=== PATIENT | female | born 1980 | race Caucasian/White ===

== ENCOUNTER 2020-05-21 15:39 | Outpatient (REF) | payer OTHER, SELFPAY ==
--- NOTE | 2020-05-21 15:46 | MM_ITS ---
EXAMINATION: MM SCREENING DIGITAL BREAST TOMOSYNTHESIS, BILATERAL CLINICAL INFORMATION: Screening. Asymptomatic. The lifetime risk of breast cancer based on the Tyrer-Cuzick Model is 11%. COMPARISON: Mammography: 03/22/2019, 09/17/2018 (diagnostic and baseline); MRI breasts 01/10/2019. TECHNIQUE: Digital breast tomosynthesis is performed in both the craniocaudal and mediolateral oblique views along with computer-aided detection (CAD). Synthesized 2D images are generated from the tomosynthesis. Additional left MLO view is provided. FINDINGS: There are scattered areas of fibroglandular density (ACR BI-RADS breast composition Category b). Parenchymal pattern is similar to prior studies. There is no interval mass or architectural abnormality. No abnormal calcifications. The axilla and skin contours are unremarkable. MM/MM tomosynthesis screening BI IMPRESSION: No mammographic evidence of malignancy. ASSESSMENT: BI-RADS 1: Negative RECOMMENDATION: Routine annual mammography screening. This patient's information was entered into a reminder system with a target due date for their next mammogram.
== END 2020-05-21 15:40 | disposition home or self-care (01) ==
LOC: HO.MAMMO 15:39
PROVIDERS: PCP Internal Medicine; Visit Provider Internal Medicine
DX: Z12.31 Encounter for screening mammogram for malignant neoplasm of breast (principal)
CPT/HCPCS: 77063; 77067

== ENCOUNTER 2021-05-29 13:51 | Outpatient (REF) | payer OTHER, SELFPAY ==
--- NOTE | ~2021-05-29 | MM_ITS ---
EXAMINATION: MM SCREENING DIGITAL BREAST TOMOSYNTHESIS, BILATERAL CLINICAL INFORMATION: Screening. Asymptomatic. The lifetime risk of breast cancer based on the Tyrer-Cuzick Model is 10.8%. COMPARISON: Mammography: May 21, 2020 and studies dating back to September 17, 2018 TECHNIQUE: Digital breast tomosynthesis is performed in both the craniocaudal and mediolateral oblique views along with computer-aided detection (CAD). Synthesized 2D images are generated from the tomosynthesis. FINDINGS: There are scattered areas of fibroglandular density (ACR BI-RADS breast composition Category b). There are no significant masses, abnormal calcifications, or other abnormalities. MM/MM tomosynthesis screening BI IMPRESSION: There are no significant changes from prior study. ASSESSMENT: BI-RADS 1: Negative RECOMMENDATION: Routine annual mammography screening. This patient's information was entered into a reminder system with a target due date for their next mammogram.
== END 2021-05-29 13:52 | disposition home or self-care (01) ==
LOC: HO.MAMMO 13:51
PROVIDERS: PCP Internal Medicine; Visit Provider Internal Medicine
DX: Z12.31 Encounter for screening mammogram for malignant neoplasm of breast (principal)
CPT/HCPCS: 77063; 77067

== ENCOUNTER 2022-05-30 14:25 | Outpatient (REF) | payer OTHER, SELFPAY ==
--- NOTE | ~2022-05-30 | MM_ITS ---
EXAMINATION: MM SCREENING DIGITAL BREAST TOMOSYNTHESIS, BILATERAL CLINICAL INFORMATION: Screening. Asymptomatic. History reduction mammoplasty over 15 years ago. The lifetime risk of breast cancer based on the Tyrer-Cuzick Model is 11%. COMPARISON: Mammography: 05/29/2021, 05/21/2020, 03/22/2019, 09/17/2018 (baseline) TECHNIQUE: Digital breast tomosynthesis is performed in both the craniocaudal and mediolateral oblique views along with computer-aided detection (CAD). Synthesized 2D images are generated from the tomosynthesis. FINDINGS: There are scattered areas of fibroglandular density (ACR BI-RADS breast composition Category b). There are no significant masses, abnormal calcifications, or other abnormalities. Parenchymal pattern is similar to prior studies. No developing density or architectural abnormality. The axilla and skin contours are unremarkable. No significant changes. MM/MM tomosynthesis screening BI IMPRESSION: No mammographic evidence of malignancy. ASSESSMENT: BI-RADS 1: Negative RECOMMENDATION: Routine annual mammography screening. This patient's information was entered into a reminder system with a target due date for their next mammogram.
== END 2022-05-30 14:26 | disposition home or self-care (01) ==
LOC: HO.MAMMO 14:25
PROVIDERS: PCP Internal Medicine; Visit Provider Internal Medicine
DX: Z12.31 Encounter for screening mammogram for malignant neoplasm of breast (principal)
CPT/HCPCS: 77063; 77067

== ENCOUNTER 2023-03-09 13:53 | Outpatient (AMB) | payer OTHER, SELFPAY ==
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
[2023-03-09 14:03] VITALS: BP 150/100; BMI 31.8
== END 2023-03-09 14:59 | disposition home or self-care (01) ==
PROVIDERS: Visit Provider Advanced Practice Midwife
DX: Z01.419 Encounter for gynecological examination (general) (routine) without abnormal findings (principal); Z12.4 Encounter for screening for malignant neoplasm of cervix; R03.0 Elevated blood-pressure reading, without diagnosis of hypertension
CPT/HCPCS: 99386

== ENCOUNTER 2023-03-09 13:53 | Outpatient (REF) | payer OTHER, SELFPAY ==
[2023-03-10 09:54] LABS: CT PCR NOT DETECTED (Not Detect.); NG PCR NOT DETECTED (Not Detect.)
[2023-03-10 10:22] LABS: BV Int Neg Control Negative (Negative); BV Int Pos Control Positive (Positive)
[2023-03-12 04:54] LABS: HPV mRNA E6/E7 rflx Not Detected (Not Detected)
== END 2023-03-09 13:54 | disposition home or self-care (01) ==
LOC: HO.LNP 13:53
PROVIDERS: Visit Provider Advanced Practice Midwife
DX: Z01.419 Encounter for gynecological examination (general) (routine) without abnormal findings (principal); Z11.51 Encounter for screening for human papillomavirus (HPV); R03.0 Elevated blood-pressure reading, without diagnosis of hypertension; Z20.2 Contact with and (suspected) exposure to infections with a predominantly sexual mode of transmission
CPT/HCPCS: 0353U; 87480; 87510; 87624; 87660; 88142

== ENCOUNTER 2023-07-27 13:34 | Outpatient (AMB) | payer OTHER, SELFPAY ==
[2023-07-27 13:37] VITALS: BP 114/80; PULSE 107; O2SAT 98; BMI 31.6
--- NOTE | 2023-07-27 13:37 | MHC.PC.OV ---
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 Accompanied by: Self / Same As Patient Allergies Penicillins Allergy (Mild, Verified 07/27/23 14:46) HIVES vancomycin [Vancomycin] Allergy (Mild, Verified 07/27/23 14:46) ITCHING, severe itching penicillin G procaine Allergy (Unknown, Verified 07/27/23 14:46) itching, redness Shellfish Allergy (Mild, Uncoded 07/27/23 14:46) Anaphylaxis shellfish Allergy (Unknown, Uncoded 07/27/23 14:46) Anaphylaxis Medication List - Last Reconciled 08/03/23 by Ankur Fontaine MD coenzyme Q10 100 mg PO DAILY epinephrine 0.3 mg IM Q4H PRN L.acid,gas,bree,rham-B.ani-cran 5 billion cell- 250 mg (up4 Probiotics Women's) 1 cap PO DAILY multivitamin with minerals (Hair,Skin and Nails tablet) 1 tab PO DAILY omega 0-rma-pen-fish oil 300-1,000 mg (Fish Oil) 1 cap PO TID turmeric 400 mg PO DAILY Tobacco use date assessed: 07/27/23 Dental Screening Dental Screen Date: 07/27/23 Did you have a dental visit in the last 12 months?: Yes Did you have a dental problem in the last 6 months where you did not have access to dental care?: No Was dental information given to patient?: Patient has dentist HPI New patient-Fibromyalgia, possible hypertension HPI Details Patient comes in today to establish care - is a new patient to the practice States that she has a history of fibromyalgia and she continues to experience increased fatigue and diffuse pain overall, which she states have been going on for a while now States that she has learned how to manage her fibromyalgia symptoms over time but there still are days when her symptoms bother her a lot She also relates (+) Hx of Chiari malformation and likely migraine headaches and relates (+) frequent headaches Relates (+) photophobia and nausea associated with her headaches - would like to get a referral to go to [facility] for further evaluation and management of her chronic headaches She denies any dizziness Denies any chest pains, no SOB but reports that her heart sometimes would feel like it is racing; denies experiencing any skipped beats No vomiting, no abdominal pain and no change in bowel habits noted [facility] Medical History (Updated 08/03/23 @ 00:42 by Ankur Fontaine MD) Obesity (BMI 30-39.9) Chiari I malformation Migraine Palpitations Surgical History Hx of bilateral breast reduction surgery Hx of tubal ligation History of endometrial ablation Family History Other Congestive heart failure Diabetes Graves disease Hypertension Stomach cancer Social History Housing: House Patient Tobacco Use Status: Never used Tobacco Tobacco use type: Cigarette e-Cigarette/Vaping Use: Never Used service: No Current occupational status: employed Cognitive needs: No Hearing needs: No Vision needs: No Female Reproductive History Menstrual Age of Menarche: 13 Questionnaire PHQ-9 Over the last 2 weeks, how often have you been bothered by any of the following problems? 1. Little interest or pleasure in doing things: not at all 2. Feeling down, depressed, or hopeless: not at all 3. Trouble falling or staying asleep, or sleeping too much: not at all 4. Feeling tired or having little energy: not at all 5. Poor appetite or overeating: not at all 6. Feeling bad about yourself - or that you are a failure or have let yourself or your family down: not at all 7. Trouble concentrating on things, such as reading the newspaper or watching television: not at all 8. Moving or speaking so slowly that other people could have noticed. Or the opposite - being so fidgety or restless that you have been moving around a lot more than usual: not at all 9. Thoughts that you would be better off or of hurting yourself in some way: not at all Total score: 0 Depression Screening Interpretation: Negative Depression Screening Done: Yes 49059 - PHQ-9 Billing: Yes Source: Developed by Drs. Maico L. Bridgette, Guanako Harrell and colleagues, with an educational chelle from [employer] ([employer] Thrive Questionnaire Date Thrive assessed: 07/27/23 I am a: Patient What is your living situation today?: I have a steady place to live Within the past 12 months, did the food you bought not last and you didn't have the money to get more?: Never true Within the past 12 months, did you worry whether your food would run out before you got money to buy more?: Never true Do you have trouble paying for medicines?: No Do you have trouble getting transportation to medical appointments?: No Do you have trouble paying your heating and electricity bill?: No Do you have trouble taking care of your child, family member or friend?: No Do you have trouble with day-to-day activities such as bathing, preparing meals, shopping, managing finances, etc.?: No Are you currently unemployed and looking for a job?: No Are you interested in more education?: No Please select the resources that you would like help with: None Currently or been in a relationship where the following occur: no concerns reported THRIVE Score: 0 AUDIT C Alcohol Use Questionnaire (AUDIT-C) 1. How often do you have a drink containing alcohol?: Monthly or less 3. How often do you have six or more drinks on one occasion?: Never Total Score: 1 Score Reviewed/Action Taken: Yes MAYRA-7 AMB Questionnaire MAYRA-7 Date MAYRA - 7 assessed: 07/27/23 Feeling nervous, anxious, or on edge: 0 = Not at all Not being able to stop or control worryin = Not at all Worrying too much about different things: 0 = Not at all Trouble relaxin = Not at all Being so restless that it is hard to sit still: 0 = Not at all Becoming easily annoyed or irritable: 0 = Not at all Feeling afraid as if something awful might happen: 0 = Not at all Total MAYRA-7 score (0-4 normal; 5-9 mild; 10-14 moderate; 15-21 severe): 0 Source: Developed by Drs. Maico Angeles, Guanako Harrell and colleagues, with an educational chelle from [employer] ([employer]). Review of Systems Const Reports body aches (diffuse), Denies chills, Reports fatigue, Denies fever(s) and Reports headache(s) (recurrent) Eyes Denies blurry vision ENT Denies dysphagia, Denies dizziness, Denies otalgia, Reports headache(s) (recurrent), Denies neck pain, Denies odynophagia and Denies sore throat Card Denies chest pain, Denies irregular heart rhythm (but reports experiencing palpitations at times), Denies palpitations and Denies dyspnea Resp Denies cough and Denies dyspnea GI Denies abdominal pain, Denies constipation, Denies dysphagia, Denies heartburn, Denies diarrhea, Denies nausea, Denies odynophagia and Denies vomiting Denies difficulty voiding, Denies nocturia, Denies dysuria and Denies urinary urgency Musc Denies back pain, Reports myalgias (diffuse), Reports arthralgias (involving multiple joints, including her wrists and elbows) and Denies neck pain Skin/Breast Denies rash Neuro Denies dizziness and Reports headache(s) (recurrent) Endo Reports fatigue and Denies palpitations Physical exam (Primary Care) Vital Signs: Last Vital Signs Pulse 107 H 07/27/23 13:37 BP 114/80 07/27/23 13:37 Pulse Ox 98 07/27/23 13:37 Oxygen Delivery Method Room Air 07/27/23 13:37 BMI result Body Mass Index 31.6 Tobacco/Smoking Status: Tobacco use Status Tobacco use date assessed 07/27/23 07/27/23 13:38 Patient Tobacco Use Status Never used Tobacco 07/27/23 13:38 Tobacco use type Cigarette 07/27/23 13:38 e-Cigarette/Vaping Use Never Used 07/27/23 13:38 PHQ-9: PHQ-9 Score PHQ-9: Total score 0 07/27/23 14:59 Depression Screening Interpretation: Negative Thrive Assessment: Date of Thrive Assessment Date Thrive assessed 07/27/23 07/27/23 13:47 Currently or been in a relationship where the following occur: no concerns reported Const General: no acute distress and alert Orientation/consciousness: patient oriented x3 HENMT Ears: TM's normal bilaterally and EAC's normal Throat: Yes posterior oropharynx normal and Yes tonsils normal (no TP congestion) Neck Neck: Yes no lymphadenopathy and Yes supple Resp Auscultation: clear to auscultation bilaterally, no rales and no wheezes Cardio Rate: regular rate Rhythm: abnormal rhythm with ectopic beats Heart sounds: no murmurs GI Palpation (GI): Soft to palpation and nontender Auscultation: normal bowel sounds General: Yes no CVA tenderness Back/Spine/Pelvis Back: no CVA tenderness Thoracic/Lumbar Spine: No lumbar spinal tenderness Skin Rashes: no rashes Neuro General: patient oriented x3 Cognition (Neuro): normal cognition Extrem Other: No significant joint tenderness elicited on exam despite patient's complaint of multiple joint pains General: Yes no clubbing, cyanosis or edema Assessment and Plan Assessment & Plan (1) Arthralgia: Code(s): M25.50 - Pain in unspecified joint Qualifiers: Joint pain location: unspecified Qualified Code(s): M25.50 - Pain in unspecified joint Plan: Will send patient for some labs for further evaluation and management of her diffuse/multiple joint pains (2) Palpitations: Code(s): R00.2 - Palpitations Plan: She sounded like she has some ectopic beats on exam today EKG done at [facility] year came out normal Will send her for repeat EKG ANGEL for further evaluation (3) Chronic headaches: Code(s): R51.9 - Headache, unspecified; G89.29 - Other chronic pain Qualifiers: Headache type: unspecified Intractability: not intractable Qualified Code(s): R51.9 - Headache, unspecified; G89.29 - Other chronic pain Plan: Advised that her recurrent headaches are likely due to her Chiari malformation but patient also relates (+) Hx of migraine headaches Per request, will refer her to [facility] for further evaluation and management (4) Chiari I malformation: Code(s): G93.5 - Compression of brain Plan: Will refer her to neurology for further evaluation and management (5) Obesity (BMI 30-39.9): Code(s): E66.9 - Obesity, unspecified Plan: Reinforced diet/exercise as tolerated/lose weight Plan Follow up in 3 months Orders: Orders Comprehensive [place]. Panel Fast 07/27/23 E78.00 - Pure hypercholesterolemia, unspecified UA CC w/rflx Micro + Cult 07/27/23 R30.0 - Dysuria Vitamin D 25-OH Total 07/27/23 E55.9 - Vitamin D deficiency, unspecified C Reactive Protein 07/27/23 M25.50 - Pain in unspecified joint SHELLY Reflex Titer and Pattern 07/27/23 M25.50 - Pain in unspecified joint Complete Blood Count Auto Diff 07/27/23 D64.9 - Anemia, unspecified Lipid Panel 07/27/23 E78.00 - Pure hypercholesterolemia, unspecified TSH reflex Free T4 07/27/23 R00.2 - Palpitations Erythrocyte Sedimentation Rate 07/27/23 M25.50 - Pain in unspecified joint Rheumatoid Factor 07/27/23 M25.50 - Pain in unspecified joint Lyme IgG/IgM w/reflex to WB 07/27/23 M25.50 - Pain in unspecified joint Hepatitis C Antibody 07/27/23 M25.50 - Pain in unspecified joint ECG 12 lead EKG 07/27/23 R00.2 - Palpitations Referrals Neurology Referral G43.909 - Migraine, unspecified, not intractable, without status migrainosus, G93.5 - Compression of brain Coding Level of Care Code New Pt Level 4 (72133) Diagnoses Arthralgia, unspecified joint M25.50 Joint pain location: unspecified Palpitations R00.2 Chronic nonintractable headache, unspecified headache type R51.9; G89.29 Headache type: unspecified Intractability: not intractable Chiari I malformation G93.5 Obesity (BMI 30-39.9) E66.9
== END 2023-07-27 15:10 | disposition home or self-care (01) ==
PROVIDERS: PCP Internal Medicine; Visit Provider Internal Medicine
DX: M25.50 Pain in unspecified joint (principal); G93.5 Compression of brain; E66.9 Obesity, unspecified; Z68.31 Body mass index [BMI] 31.0-31.9, adult; R00.2 Palpitations; R51.9 Headache, unspecified; G89.29 Other chronic pain
CPT/HCPCS: 99204

== ENCOUNTER 2023-08-15 07:43 | Outpatient (REF) | payer OTHER, SELFPAY ==
--- NOTE | ~2023-08-15 | MM_ITS ---
EXAMINATION: MM SCREENING DIGITAL BREAST TOMOSYNTHESIS, BILATERAL CLINICAL INFORMATION: Screening. Asymptomatic. The patient is status post bilateral breast reduction. COMPARISON: Mammography: This study is compared with prior exams dating back to TECHNIQUE: Digital breast tomosynthesis is performed in both the craniocaudal and mediolateral oblique views along with computer-aided detection (CAD). Synthesized 2D images are generated from the tomosynthesis. FINDINGS: There are scattered areas of fibroglandular density (ACR BI-RADS breast composition Category b). There are no significant masses, abnormal calcifications, or other abnormalities. MM/MM tomosynthesis screening BI IMPRESSION: No mammographic evidence of malignancy. ASSESSMENT: BI-RADS BI-RADS 1 - Negative RECOMMENDATION: Routine annual mammography screening. 1 year F/U This examination should not preclude the clinical evaluation of a suspicious palpable abnormality. This patient's information was entered into a reminder system with a target due date for their next mammogram.
== END 2023-08-15 07:44 | disposition home or self-care (01) ==
LOC: HO.MAMMO 07:43
PROVIDERS: PCP Internal Medicine; Visit Provider Internal Medicine
DX: Z12.31 Encounter for screening mammogram for malignant neoplasm of breast (principal)
CPT/HCPCS: 77063; 77067

== ENCOUNTER → 2023-08-15 08:00 | Outpatient (BNV) | payer OTHER, SELFPAY | PROVIDERS: PCP Internal Medicine; Visit Provider Radiology Diagnostic Radiology | DX: Z12.31 Encounter for screening mammogram for malignant neoplasm of breast (principal) | CPT/HCPCS: 77063; 77067 ==

== ENCOUNTER 2023-10-26 15:02 | Outpatient (AMB) | payer OTHER, SELFPAY ==
--- NOTE | 2023-10-26 15:06 | A.OFFPC_ITS ---
Vital Signs 10/26/23 15:08 Height 5 ft 2 in Weight 166 lb BMI 30.4 BP 120/70 Blood Pressure Location Lt brachial Position Sitting Pulse 61 Pulse Source Pulse Oximeter Pulse Oximetry (%) 100 Oxygen Delivery Method Room Air Intake Visit Reasons: Chiari Malformation, migraine Intake Note: Patient is here to follow up on Chiari Malformation, Migraine. 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[employer] Operator Required: No Rn Disease Management: Not Required per policy Accompanied by: Self / Same As Patient Allergies Penicillins Allergy (Mild, Verified 10/26/23 15:37) HIVES vancomycin [Vancomycin] Allergy (Mild, Verified 10/26/23 15:37) ITCHING, severe itching penicillin G procaine Allergy (Unknown, Verified 10/26/23 15:37) itching, redness Shellfish Allergy (Mild, Uncoded 10/26/23 15:37) Anaphylaxis shellfish Allergy (Unknown, Uncoded 10/26/23 15:37) Anaphylaxis Medication List - Last Reconciled 10/26/23 by Ankur Fontaine MD cholecalciferol (vitamin D3) 25 mcg PO DAILY coenzyme Q10 100 mg PO DAILY epinephrine 0.3 mg IM Q4H PRN L.acid,gas,bree,rham-B.ani-cran 5 billion cell- 250 mg (up4 Probiotics Women's) 1 cap PO DAILY multivitamin with minerals (Hair,Skin and Nails tablet) 1 tab PO DAILY omega 8-fud-zvr-fish oil 300-1,000 mg (Fish Oil) 1 cap PO TID topiramate XR 50 mg orally; Patient takes 1 tab in the AM and 2 tabs in the PM. turmeric 400 mg PO DAILY Tobacco use date assessed: 10/26/23 Dental Screening Dental Screen Date: 07/27/23 HPI Chiari Malformation, migraine HPI Details Patient comes in today for her follow up visit States that she is still experiencing recurrent headaches at present despite her Topiramate Rx - is currently on 50 mg in AM and 100 mg in PM She has been referred to neurology previously and is now scheduled to see Dr. Denise Lancaster at [facility] next Thursday Adds that she continues to experience frequent fatigue and diffuse pain due to her fibromyalgia but she has been diligent about exercising regularly and staying active to help manage her symptoms better She denies any dizziness Denies any chest pains, no SOB No nausea/vomiting, no abdominal pain No change in bowel habits noted Would like to know how her recent labs and EKG done over the past couple of months came out [facility] Medical History (Updated 10/27/23 @ 05:45 by Ankur Fontaine MD) Fibromyalgia Obesity (BMI 30-39.9) Chiari I malformation Migraine Palpitations Surgical History Hx of bilateral breast reduction surgery Hx of tubal ligation History of endometrial ablation Family History Other Congestive heart failure Diabetes Graves disease Hypertension Stomach cancer Social History Housing: House Alcohol intake: current Alcohol intake frequency: holidays/special occasions only Patient Tobacco Use Status: Never used Tobacco Tobacco use type: Cigarette e-Cigarette/Vaping Use: Never Used service: No Current occupational status: employed Cognitive needs: No Hearing needs: No Vision needs: Yes (Glasses) Female Reproductive History Menstrual Age of Menarche: 13 Questionnaire Thrive Questionnaire Date Thrive assessed: 07/27/23 AUDIT C Alcohol Use Questionnaire (AUDIT-C) 1. How often do you have a drink containing alcohol?: Monthly or less 2. How many drinks containing alcohol do you have on a typical day when you are drinking?: 1 or 2 3. How often do you have six or more drinks on one occasion?: Never Total Score: 1 Score Reviewed/Action Taken: Yes MAYRA-7 AMB Questionnaire MAYRA-7 Date MAYRA - 7 assessed: 07/27/23 Source: Developed by Drs. Maico Angeles, Lesia Montero, Guanako Nova and colleagues, with an educational chelle from [employer]. Review of Systems Const Reports body aches (diffuse), Denies chills, Reports fatigue, Denies fever(s) and Reports headache(s) (recurrent) ENT Denies dysphagia, Denies dizziness, Denies otalgia, Reports headache(s) (recurrent), Denies neck pain, Denies odynophagia and Denies sore throat Card Denies chest pain, Denies irregular heart rhythm (but reports experiencing palpitations/tachycardia at times), Denies palpitations and Denies dyspnea Resp Denies chest congestion, Denies cough and Denies dyspnea GI Denies abdominal pain, Denies constipation, Denies dysphagia, Denies heartburn, Denies diarrhea, Denies nausea, Denies odynophagia and Denies vomiting Denies difficulty voiding, Denies nocturia, Denies dysuria and Denies urinary urgency Musc Denies back pain, Reports myalgias (diffuse), Reports arthralgias (involving multiple joints, including her wrists and elbows) and Denies neck pain Skin/Breast Denies rash Neuro Denies dizziness and Reports headache(s) (recurrent) Endo Reports fatigue and Denies palpitations Physical exam (Primary Care) Vital Signs: Last Vital Signs Pulse 61 10/26/23 15:08 BP 120/70 10/26/23 15:08 Pulse Ox 100 10/26/23 15:08 Oxygen Delivery Method Room Air 10/26/23 15:08 BMI result Body Mass Index 30.4 Tobacco/Smoking Status: Tobacco use Status Tobacco use date assessed 10/26/23 10/26/23 15:12 Patient Tobacco Use Status Never used Tobacco 10/26/23 15:12 Tobacco use type Cigarette 10/26/23 15:12 e-Cigarette/Vaping Use Never Used 10/26/23 15:12 Thrive Assessment: Date of Thrive Assessment Date Thrive assessed 07/27/23 10/26/23 15:12 Const General: no acute distress and alert HENMT Throat: Yes posterior oropharynx normal and Yes tonsils normal (no TP congestion) Neck Neck: Yes no lymphadenopathy and Yes supple Thyroid: Thyroid normal Resp Auscultation: clear to auscultation bilaterally, no rales and no wheezes Cardio Rate: regular rate Rhythm: abnormal rhythm with ectopic beats Heart sounds: no murmurs GI Palpation (GI): Soft to palpation and nontender Auscultation: normal bowel sounds General: Yes no CVA tenderness Back/Spine/Pelvis Back: no CVA tenderness Thoracic/Lumbar Spine: No lumbar spinal tenderness Skin Rashes: no rashes Extrem General: Yes no clubbing, cyanosis or edema Assessment and Plan Assessment & Plan (1) Arthralgia: Code(s): M25.50 - Pain in unspecified joint Qualifiers: Joint pain location: unspecified Qualified Code(s): M25.50 - Pain in unspecified joint Plan: Results of her labs done at [facility] a couple of months ago reviewed and discussed with patient - advised that her results are mostly normal and serologies and arthralgia work ups are all negative/normal as well Advised that her joint pains are likely related to her fibromyalgia and she should continue staying active and exercising regularly to help manage her symptoms better Will also refer her to rheumatology for further evaluation and management and to see if they have any other recommendations regarding her joint pains at this time (2) Palpitations: Code(s): R00.2 - Palpitations Plan: Patient had some ectopic beats on exam previously but her heartbeats sound normal today EKG done at [facility] last year came out normal We sent her for repeat EKG a couple of months ago but so far we have not yet received the report - will try to reach out to [facility] and have them send over her most recent EKG ANGEL for review Advised that further work ups, if any is needed, will depend on how her EKG comes out Patient states that she has not had any recurrence of her symptoms of palpitations lately (3) Chronic headaches: Code(s): R51.9 - Headache, unspecified; G89.29 - Other chronic pain Qualifiers: Headache type: unspecified Intractability: not intractable Qualified Code(s): R51.9 - Headache, unspecified; G89.29 - Other chronic pain Plan: These are likely related to her Chiari I malformation but patient also has a Hx of migraine headaches Per request, she was referred to [facility] for further evaluation and management and she is now scheduled to be seen by Dr. Denise Lancaster at [facility] next Thursday (4) Chiari I malformation: Code(s): G93.5 - Compression of brain Plan: She is scheduled to see neurology at [facility] next Thursday (5) Obesity (BMI 30-39.9): Code(s): E66.9 - Obesity, unspecified Plan: Reinforced diet/exercise as tolerated/lose weight Plan Follow up in 6 months Orders: Referrals Rheumatology Referral M25.50 - Pain in unspecified joint Coding Level of Care Code Est Pt Level 4 (55196) Diagnoses Arthralgia, unspecified joint M25.50 Joint pain location: unspecified Palpitations R00.2 Chronic nonintractable headache, unspecified headache type R51.9; G89.29 Headache type: unspecified Intractability: not intractable Chiari I malformation G93.5 Obesity (BMI 30-39.9) E66.9
[2023-10-26 15:08] VITALS: BP 120/70; PULSE 61; O2SAT 100; BMI 30.4
== END 2023-10-26 15:49 | disposition home or self-care (01) ==
PROVIDERS: PCP Internal Medicine; Visit Provider Internal Medicine
DX: R00.2 Palpitations (principal); G93.5 Compression of brain; M25.50 Pain in unspecified joint; R51.9 Headache, unspecified; G89.29 Other chronic pain; E66.9 Obesity, unspecified
CPT/HCPCS: 99214

== ENCOUNTER 2024-03-14 15:02 | Outpatient (AMB) | payer OTHER, SELFPAY ==
--- NOTE | 2024-03-14 15:09 | A.OFFPC_ITS ---
Vital Signs 03/14/24 15:15 Height 5 ft 2 in Weight 167 lb 12.348 oz BMI 30.7 BP 112/60 Blood Pressure Location Lt brachial Position Sitting Pulse 87 Pulse Source Pulse Oximeter Pulse Oximetry (%) 98 Oxygen Delivery Method Room Air Intake Visit Reasons: Joint pain Intake Note: New patient internally referred by PCP. Patient presents today for joint pain. She states pain is all over her body, she states it's been almost 16 years, she states she uses Tylenol and Excedrin headaches Allergies Penicillins Allergy (Mild, Verified 03/14/24 15:12) HIVES vancomycin [Vancomycin] Allergy (Mild, Verified 03/14/24 15:12) ITCHING, severe itching penicillin G procaine Allergy (Unknown, Verified 03/14/24 15:12) itching, redness Shellfish Allergy (Mild, Uncoded 03/14/24 15:12) Anaphylaxis shellfish Allergy (Unknown, Uncoded 03/14/24 15:12) Anaphylaxis Medication List - Last Reconciled 03/14/24 by Jonathan Denton MD cholecalciferol (vitamin D3) 25 mcg PO DAILY coenzyme Q10 100 mg PO DAILY epinephrine 0.3 mg (0.3 mL) IM ONCE PRN L.acid,gas,bree,rham-B.ani-cran 5 billion cell- 250 mg (up4 Probiotics Women's) 1 cap PO DAILY multivitamin with minerals (Hair,Skin and Nails tablet) 1 tab PO DAILY omega 9-tko-olw-fish oil 300-1,000 mg (Fish Oil) 1 cap PO TID topiramate XR 50 mg orally; Patient takes 1 tab in the AM and 2 tabs in the PM. turmeric 400 mg PO DAILY Tobacco use date assessed: 10/26/23 Dental Screening Dental Screen Date: 07/27/23 HPI HPI Comments History of Present Illness Details This is a 43-year-old female who presents for evaluation of diffuse pain. She states that she has had diffuse pains for more than 15 years now. She has pain in her legs, her shins, calves, hands, feet, back, she also complains of intermittent twitching, she also gets intermittent tingling and numbness of her hands and feet. She has known history of migraines. She also has a Chiari malformation. She is unaware of any family history of an autoimmune rheumatic disease. She has an aunt with multiple sclerosis. She denies any fevers, denies any swollen joints. Denies any significant skin rashes. She is unaware of any family history of psoriasis. She has difficulty falling and staying asleep. She denies any history of anxiety, rashes or PTSD. [facility] Medical History Fibromyalgia Obesity (BMI 30-39.9) Chiari I malformation Migraine Palpitations Surgical History Hx of bilateral breast reduction surgery Hx of tubal ligation History of endometrial ablation Family History Mother Graves disease Other Congestive heart failure Diabetes Hypertension Stomach cancer Social History Housing: House Alcohol intake: current Alcohol intake frequency: holidays/special occasions only Patient Tobacco Use Status: Never used Tobacco Tobacco use type: Cigarette e-Cigarette/Vaping Use: Never Used service: No Current occupational status: employed 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 Maico Angeles, Lesia Montero, Guanako Nova and colleagues, with an educational chelle from [employer]. Review of Systems Const Reports fever(s), Reports weakness, Denies weight gain and Denies weight loss ENT Reports dysphagia, Reports dry mouth and Reports tinnitus Card Reports irregular heart rhythm and Reports dyspnea Resp Reports dyspnea GI Reports dysphagia and Reports heartburn Musc Reports back pain, Reports myalgias, Reports arthralgias and Denies joint swelling Neuro Reports weakness Psych Reports abnormal sleep pattern and Reports anxiety Physical exam (Primary Care) Vital Signs: Last Vital Signs Pulse 87 03/14/24 15:15 BP 112/60 03/14/24 15:15 Pulse Ox 98 03/14/24 15:15 Oxygen Delivery Method Room Air 03/14/24 15:15 BMI result Body Mass Index 30.7 Tobacco/Smoking Status: Tobacco use Status Tobacco use date assessed 10/26/23 03/14/24 15:17 Patient Tobacco Use Status Never used Tobacco 03/14/24 15:36 Tobacco use type Cigarette 03/14/24 15:36 e-Cigarette/Vaping Use Never Used 03/14/24 15:36 Thrive Assessment: Date of Thrive Assessment Date Thrive assessed 07/27/23 03/14/24 15:17 Const General: cooperative, healthy appearing and comfortable HENID Head: Yes normocephalic and Yes atraumatic Resp Effort & Inspection: normal respiratory effort and able to speak in complete sentences Auscultation: clear to auscultation bilaterally Cardio Rate: regular rate Rhythm: regular rhythm Extrem Other: No active synovitis Minimal osteoarthritic changes of her hands Few fibromyalgia tender points Normal nailfold capillaroscopy Assessment and Plan Assessment & Plan (1) Fibromyalgia: Code(s): M79.7 - Fibromyalgia Plan: This is a 43-year-old female who presents for evaluation of diffuse pain for more than 15 years. Upon evaluation I do not see any signs suggestive of an autoimmune rheumatic disease. Clinical picture consistent with fibromyalgia Discussed management of fibromyalgia with patient. Is a noninflammatory, non- autoimmune central afferent processing disorder leading to a diffuse pain syndrome. I suggested evaluation by a psychotherapist to address any potential underlying anxiety/depression. Try to follow sleep hygiene practices. Consider a referral for a sleep study to rule out ELLIOTT. Patient works out regularly, she does the elliptical, light weights, stretching. She exercises about 4 days a week. Advised patient to continue with exercises Follow-up with PCP Plan I spent 30 minutes reviewing patient's chart, evaluating patient, counseling patient and documenting in the chart Coding Level of Care Code New Pt Level 3 (60645) Diagnoses Fibromyalgia M79.7
[2024-03-14 15:15] VITALS: BP 112/60; PULSE 87; O2SAT 98; BMI 30.7
== END 2024-03-14 16:38 | disposition home or self-care (01) ==
PROVIDERS: PCP Internal Medicine; Visit Provider Student in an Organized Health Care Education/Training Program
DX: M79.7 Fibromyalgia (principal)
CPT/HCPCS: 99203

== ENCOUNTER → 2024-03-14 15:02 | Outpatient (BNVA) | payer OTHER, SELFPAY | PROVIDERS: PCP Internal Medicine; Visit Provider Student in an Organized Health Care Education/Training Program | DX: M79.7 Fibromyalgia (principal) | CPT/HCPCS: 99202 ==

== ENCOUNTER 2024-05-02 10:39 | Outpatient (AMB) | payer OTHER, SELFPAY ==
[2024-05-02 10:40] VITALS: BP 112/82; PULSE 85; O2SAT 99; BMI 31.0
--- NOTE | 2024-05-02 10:40 | A.OFFPC_ITS ---
Vital Signs 05/02/24 10:40 Height 5 ft 2 in Weight 169 lb 8 oz BMI 31.0 BP 112/82 Blood Pressure Location Lt brachial Position Sitting Pulse 85 Pulse Source Pulse Oximeter Pulse Oximetry (%) 99 Oxygen Delivery Method Room Air Intake Visit Reasons: Chiari I malformation, migraine [employer] Specialist Required: No Accompanied by: Self / Same As Patient Allergies Penicillins Allergy (Mild, Verified 05/02/24 11:07) HIVES vancomycin [Vancomycin] Allergy (Mild, Verified 05/02/24 11:07) ITCHING, severe itching penicillin G procaine Allergy (Unknown, Verified 05/02/24 11:07) itching, redness Shellfish Allergy (Mild, Uncoded 05/02/24 11:07) Anaphylaxis shellfish Allergy (Unknown, Uncoded 05/02/24 11:07) Anaphylaxis Medication List - Last Reconciled 05/02/24 by Ankur Fontaine MD cholecalciferol (vitamin D3) 25 mcg PO DAILY coenzyme Q10 100 mg PO DAILY epinephrine 0.3 mg (0.3 mL) IM ONCE PRN L.acid,gas,bree,rham-B.ani-cran 5 billion cell- 250 mg (up4 Probiotics Women's) 1 cap PO DAILY multivitamin with minerals (Hair,Skin and Nails tablet) 1 tab PO DAILY omega 3-pgs-iql-fish oil 300-1,000 mg (Fish Oil) 1 cap PO TID topiramate XR 50 mg orally; Patient takes 1 tab in the AM and 2 tabs in the PM. turmeric 400 mg PO DAILY Tobacco use date assessed: 05/02/24 Dental Screening Dental Screen Date: 05/02/24 Did you have a dental visit in the last 12 months?: Yes Did you have a dental problem in the last 6 months where you did not have access to dental care?: No Was dental information given to patient?: Patient has dentist HPI Chiari I malformation, migraine HPI Details Patient comes in today for her follow up visit Notes that her headaches have been better controlled lately since her Topiramate was increased to 100 mg BID She has been seeing Dr. Denise Lancaster at [facility] for her headaches but found out recently that she is leaving and meeds her Topiramate Rx refilled through us for now Reports that she has been feeling achy a lot lately, especially on her left side - states that she sometimes has a sensation of 'pins and needles' on her side She was seen by rheumatology a couple of months ago and was advised that her symptoms are consistent with fibromyalgia and that they do not find any evidence of any inflammatory joint disease on her present She continues to experience frequent fatigue and diffuse pain due to her fibromyalgia but has been diligent about exercising regularly and staying active to help manage her symptoms better Notes that both of her feet feel painful and hot often at night lately - states that she feels like there is a blowtorch held to her feet sometimes and there has been a few nights where she has a hard time sleeping due to the pain She denies any dizziness Denies any chest pains, no increased SOB but she continues to experience on and off sensation of palpitations / skipped beats States that these episodes last only for a few seconds and she has not noticed any other associated symptoms although she states that she tends to just hold still and wait for these to pass when they occur No nausea/vomiting, no abdominal pain No change in bowel habits noted [facility] Medical History (Updated 05/02/24 @ 12:47 by Ankur Fontaine MD) Mixed hyperlipidemia Fibromyalgia Obesity (BMI 30-39.9) Chiari I malformation Migraine Palpitations Surgical History Hx of bilateral breast reduction surgery Hx of tubal ligation History of endometrial ablation Family History Mother Graves disease Other Congestive heart failure Diabetes Hypertension Stomach cancer Social History (Updated 05/02/24 @ 11:11 by Ankur Fontaine MD) Housing: House Alcohol intake: current Alcohol intake frequency: holidays/special occasions only Patient Tobacco Use Status: Never used Tobacco e-Cigarette/Vaping Use: Never Used service: No Current occupational status: employed 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 1. Little interest or pleasure in doing things: not at all 2. Feeling down, depressed, or hopeless: not at all 3. Trouble falling or staying asleep, or sleeping too much: not at all 4. Feeling tired or having little energy: not at all 5. Poor appetite or overeating: not at all 6. Feeling bad about yourself - or that you are a failure or have let yourself or your family down: not at all 7. Trouble concentrating on things, such as reading the newspaper or watching television: not at all 8. Moving or speaking so slowly that other people could have noticed. Or the opposite - being so fidgety or restless that you have been moving around a lot more than usual: not at all 9. Thoughts that you would be better off or of hurting yourself in some way: not at all Total score: 0 Depression Screening Interpretation: Negative Depression Screening Done: Yes 88644 - PHQ-9 Billing: Yes Source: Developed by Drs. Maico Angeles, Lesia Montero, Guanako Nova and colleagues, with an educational chelle from [employer]. Thrive Questionnaire Date Thrive assessed: 05/02/24 I am a: Patient What is your living situation today?: I have a steady place to live Within the past 12 months, did the food you bought not last and you didn't have the money to get more?: Never true Within the past 12 months, did you worry whether your food would run out before you got money to buy more?: Never true Do you have trouble paying for medicines?: No Do you have trouble getting transportation to medical appointments?: No Do you have trouble paying your heating and electricity bill?: No Do you have trouble taking care of your child, family member or friend?: No Do you have trouble with day-to-day activities such as bathing, preparing meals, shopping, managing finances, etc.?: No Are you currently unemployed and looking for a job?: No Are you interested in more education?: No Please select the resources that you would like help with: None Currently or been in a relationship where the following occur: No concerns reported THRIVE Score: 0 AUDIT C Alcohol Use Questionnaire (AUDIT-C) 1. How often do you have a drink containing alcohol?: Monthly or less 2. How many drinks containing alcohol do you have on a typical day when you are drinking?: 1 or 2 3. How often do you have six or more drinks on one occasion?: Never Total Score: 1 Score Reviewed/Action Taken: Yes MAYRA-7 AMB Questionnaire MAYRA-7 Date MAYRA - 7 assessed: 05/02/24 Feeling nervous, anxious, or on edge: 0 = Not at all Not being able to stop or control worryin = Not at all Worrying too much about different things: 0 = Not at all Trouble relaxin = Not at all Being so restless that it is hard to sit still: 0 = Not at all Becoming easily annoyed or irritable: 0 = Not at all Feeling afraid as if something awful might happen: 0 = Not at all Total MAYRA-7 score (0-4 normal; 5-9 mild; 10-14 moderate; 15-21 severe): 0 Source: Developed by Drs. Maico Angeles, Lesia Montero, Guanako Nova and colleagues, with an educational chelle from [employer]. Review of Systems Const Reports body aches (diffuse), Denies chills, Reports fatigue, Denies fever(s) and Reports headache(s) (recurrent) ENT Denies dysphagia, Denies dizziness, Denies otalgia, Reports headache(s) (recurrent), Denies neck pain, Denies odynophagia and Denies sore throat Card Denies chest pain, Denies irregular heart rhythm (but reports experiencing palpitations/tachycardia at times), Reports palpitations (on and off - see HPI) and Denies dyspnea Resp Denies chest congestion, Denies cough and Denies dyspnea GI Denies abdominal pain, Denies constipation, Denies dysphagia, Denies heartburn, Denies diarrhea, Denies nausea, Denies odynophagia and Denies vomiting Denies difficulty voiding, Denies nocturia, Denies dysuria and Denies urinary urgency Musc Denies back pain, Reports myalgias (diffuse), Reports arthralgias (involving multiple joints, including her wrists and elbows) and Denies neck pain Skin/Breast Denies rash Neuro Reports burning sensations (in both feet, recurrent, often at night), Denies dizziness and Reports headache(s) (recurrent) Endo Reports fatigue and Reports palpitations (on and off - see HPI) Physical exam (Primary Care) Vital Signs: Last Vital Signs Pulse 85 05/02/24 10:40 BP 112/82 05/02/24 10:40 Pulse Ox 99 05/02/24 10:40 Oxygen Delivery Method Room Air 05/02/24 10:40 BMI result Body Mass Index 31.0 Tobacco/Smoking Status: Tobacco use Status Tobacco use date assessed 05/02/24 05/02/24 10:49 Patient Tobacco Use Status Never used Tobacco 05/02/24 10:49 Tobacco use type Cigarette 05/02/24 10:49 e-Cigarette/Vaping Use Never Used 05/02/24 10:49 PHQ-9: PHQ-9 Score PHQ-9: Total score 0 05/02/24 10:49 Depression Screening Interpretation: Negative Thrive Assessment: Date of Thrive Assessment Date Thrive assessed 05/02/24 05/02/24 10:49 Currently or been in a relationship where the following occur: No concerns reported Const General: no acute distress and alert HENMT Throat: Yes posterior oropharynx normal and Yes tonsils normal (no TP congestion) Neck Neck: Yes no lymphadenopathy and Yes supple Thyroid: Thyroid normal Resp Auscultation: clear to auscultation bilaterally, no rales and no wheezes Cardio Rate: regular rate Rhythm: abnormal rhythm with ectopic beats Heart sounds: no murmurs GI Palpation (GI): Soft to palpation and nontender Auscultation: normal bowel sounds General: Yes no CVA tenderness Back/Spine/Pelvis Back: no CVA tenderness Thoracic/Lumbar Spine: No lumbar spinal tenderness Skin Rashes: no rashes Extrem General: Yes no clubbing, cyanosis or edema Coding Level of Care Code Est Pt Level 4 (99603) Diagnoses Palpitations R00.2 Mixed hyperlipidemia E78.2 Fibromyalgia M79.7 Chronic nonintractable headache, unspecified headache type R51.9; G89.29 Headache type: unspecified Intractability: not intractable Chiari I malformation G93.5 Neuropathy G62.9 Obesity (BMI 30-39.9) E66.9 Additional Codes PHQ-9 - 66931 - PHQ-9 Billing: Yes ([id number]) Assessment & Plan Assessment & Plan (1) Palpitations: Code(s): R00.2 - Palpitations Category: Medical Plan: 12 lead EKG done at [facility] back in July 2023 revealed NSR with non- specific T-wave abnormality As patient continues to experience her recurrent symptoms of palpitations/skipped beats over the past several months, will go ahead and refer her to cardiology for further evaluation and management (2) Mixed hyperlipidemia: Code(s): E78.2 - Mixed hyperlipidemia Category: Medical Plan: Patient is reminded that her labs done back in July 2023 at [facility] revealed high cholesterol levels - total cholesterol 256, TG 198, HDL 48 and LDL 168 mg/dl Reinforced low cholesterol diet Will have her recheck her labs and fasting lipids ANGEL for follow up (3) Fibromyalgia: Code(s): M79.7 - Fibromyalgia Category: Medical Plan: She was seen by rheumatology a couple of months ago and was advised that most of her arthralgia and myalgias are due to fibromyalgia She was reassured that she does not appear to have any findings consistent with any inflammatory joint disease She is encouraged to continue to try to stay active and exercise regularly to help manage her fibromyalgia symptoms (4) Chronic headaches: Code(s): R51.9 - Headache, unspecified; G89.29 - Other chronic pain Category: Medical Qualifiers: Headache type: unspecified Intractability: not intractable Qualified Code(s): R51.9 - Headache, unspecified; G89.29 - Other chronic pain Plan: These are likely related to her Chiari I malformation but patient also has a Hx of migraine headaches Continue Topiramate XR 100 mg BID for headache prophylaxis - Rx refilled She was seeing Dr. Denise Lancaster at [facility] for follow up of her headaches but was recently informed that Dr. Lancaster is leaving the practice for [place] and she will be seeing another neurologist in the same practice at her next appointment (5) Chiari I malformation: Code(s): G93.5 - Compression of brain Category: Medical Plan: Follow up with neurology as scheduled (6) Neuropathy: Code(s): G62.9 - Polyneuropathy, unspecified Category: Medical Plan: Involving both feet/lower extremities Have discussed with patient that her recent symptoms are highly suggestive of (peripheral neuropathy) Will send her for EMG and NCV of both lower extremities for further evaluation In the meantime, can start her on Gabapentin 100 mg Q HS to help alleviate some of her symptoms (7) Obesity (BMI 30-39.9): Code(s): E66.9 - Obesity, unspecified Category: Medical Plan: Reinforced diet/exercise as tolerated/lose weight Plan Follow up in 6 months Orders: Orders Complete Blood Count Auto Diff Today D64.9 - Anemia, unspecified, G62.9 - Polyneuropathy, unspecified Comprehensive [place]. Panel Fast Today E78.00 - Pure hypercholesterolemia, unspecified, G62.9 - Polyneuropathy, unspecified UA CC w/rflx Micro + Cult Today G62.9 - Polyneuropathy, unspecified, R30.0 - Dysuria Erythrocyte Sedimentation Rate Today G62.9 - Polyneuropathy, unspecified, M79.7 - Fibromyalgia Vitamin B12 and Folate Today E53.8 - Deficiency of other specified B group vitamins, G62.9 - Polyneuropathy, unspecified NE nerve conduction velocity Today G62.9 - Polyneuropathy, unspecified, M79.671 - Pain in right foot, M79.672 - Pain in left foot Lipid Panel Today E78.00 - Pure hypercholesterolemia, unspecified, G62.9 - Polyneuropathy, unspecified TSH reflex Free T4 Today E78.00 - Pure hypercholesterolemia, unspecified, G62.9 - Polyneuropathy, unspecified C Reactive Protein Today G62.9 - Polyneuropathy, unspecified Vitamin D 25-OH Total Today E55.9 - Vitamin D deficiency, unspecified, G62.9 - Polyneuropathy, unspecified NE electromyogram (EMG) Today G62.9 - Polyneuropathy, unspecified, M79.671 - Pain in right foot, M79.672 - Pain in left foot Referrals Cardiology Referral R00.2 - Palpitations, R06.00 - Dyspnea, unspecified Medications: New gabapentin 100 mg PO BEDTIME 30 days 30 caps 3RF topiramate XR 100 mg PO BID 90 days 180 ea 1RF
== END 2024-05-02 11:28 | disposition home or self-care (01) ==
PROVIDERS: PCP Internal Medicine; Visit Provider Internal Medicine
DX: R00.2 Palpitations (principal); G93.5 Compression of brain; E66.9 Obesity, unspecified; Z68.31 Body mass index [BMI] 31.0-31.9, adult; E78.2 Mixed hyperlipidemia; M79.7 Fibromyalgia; R51.9 Headache, unspecified; G89.29 Other chronic pain; G62.9 Polyneuropathy, unspecified

== ENCOUNTER → 2024-05-02 10:39 | Outpatient (BNVA) | payer OTHER, SELFPAY | PROVIDERS: PCP Internal Medicine; Visit Provider Internal Medicine | DX: R00.2 Palpitations (principal); E78.2 Mixed hyperlipidemia; M79.7 Fibromyalgia; R51.9 Headache, unspecified; G89.29 Other chronic pain; G93.5 Compression of brain; G62.9 Polyneuropathy, unspecified | CPT/HCPCS: 96127; 99212 ==

== ENCOUNTER 2024-05-26 14:15 | Outpatient (REF) | payer OTHER, SELFPAY ==
--- NOTE | 2024-05-26 14:18 | EMG_ITS ---
Chief complaint: Bilateral feet numbness, toe cramps, low back pain Reason for referral: Evaluate for neuropathy Referred by: Dr. Fontaine Procedure done: Bilateral lower extremity NCS/EMG Precautions and/or limitations: None The limb temperature was monitored continuously and remained between 32-36 degrees C during the performance of the NCS. Nerve Conduction Studies Anti Sensory Summary Table ?Stim Site NR Onset (ms) Norm Onset (ms) Peak (ms) Norm Peak (ms) O-P Amp (?V) Norm O-P Amp Site1 Site2 Delta-0 (ms) Dist (cm) Lucien (m/s) Norm Lucien (m/s) Left Sural Anti Sensory (Lat Mall) Calf ? 2.7 3.2 <4.0 6.4 >5.0 Calf Lat Mall 2.7 14.0 52 Right Sural Anti Sensory (Lat Mall) Calf ? 2.5 3.1 <4.0 7.4 >5.0 Calf Lat Mall 2.5 14.0 56 Motor Summary Table ?Stim Site NR Onset (ms) Norm Onset (ms) O-P Amp (mV) Norm O-P Amp iAmp (mV) Amp (1st) (%) Site1 Site2 Delta-0 (ms) Dist (cm) Lucien (m/s) Norm Lucien (m/s) Right Peroneal Motor (Ext Dig Brev) Ankle ? 3.8 <4.0 8.3 >2.5 10.3 100.0 Ankle Ext Dig Brev 3.8 0.0 B Fib ? 9.1 8.7 11.0 104.8 B Fib Ankle 5.3 29.5 56 >40 Poplt ? 9.8 9.9 12.6 119.3 Poplt B Fib 0.7 4.5 64 >40 Left Tibial Motor (Abd Cloud Brev) Ankle ? 3.3 <5 16.4 >2.5 23.9 100.0 Ankle Abd Cloud Brev 3.3 0.0 Knee ? 9.8 15.0 21.3 91.5 Knee Ankle 6.5 36.0 55 >40 Right Tibial Motor (Abd Cloud Brev) Ankle ? 3.0 <5 16.4 >2.5 22.4 100.0 Ankle Abd Cloud Brev 3.0 0.0 Knee ? 9.8 14.3 18.0 87.2 Knee Ankle 6.8 36.0 53 >40 EMG ?Side Muscle Nerve Root Ins Act Fibs Psw Amp Dur Poly Recrt Int Pat Comment Right AbdHallucis MedPlantar S1-2 Nml Nml Nml Nml Nml 0 Nml Complete Right AntTibialis Dp Br Peron L4-5 Nml Nml Nml Nml Nml 0 Nml Complete Right PostTibialis Tibial L5, S1 Nml Nml Nml Nml Nml 0 Nml Complete Right MedGastroc Tibial S1-2 Nml Nml Nml Nml Nml 0 Nml Complete Right VastusMed Femoral L2-4 Nml Nml Nml Nml Nml 0 Nml Complete Left AbdHallucis MedPlantar S1-2 Nml Nml Nml Nml Nml 0 Nml Complete Left AntTibialis Dp Br Peron L4-5 Nml Nml Nml Nml Nml 0 Nml Complete Left PostTibialis Tibial L5, S1 Nml Nml Nml Nml Nml 0 Nml Complete Left MedGastroc Tibial S1-2 Nml Nml Nml Nml Nml 0 Nml Complete Left VastusMed Femoral L2-4 Nml Nml Nml Nml Nml 0 Nml Complete FINDINGS: All motor and sensory nerves tested showed normal latencies, amplitudes and conduction velocities. Concentric needle EMG was performed in selected muscles of the bilateral lower extremity. Study did not reveal signs of electric abnormalities as shown in the table above. IMPRESSION: 1. This is a normal study. 2. There is no electrodiagnostic evidence for peroneal neuropathy, tibial neuropathy, lumbosacral plexopathy, lumbar radiculopathy, or peripheral neuropathy. Thank you for your kind referral. Renetta Edwards MD, LIZETH Board Certified, [place] [employer] and [employer] (ABPMR) Board Certified, [place] [employer] Electro[employer]ostic [employer] (ABEM) CODIN [id number] x 2 MTDD
== END 2024-05-26 14:16 | disposition home or self-care (01) ==
LOC: HO.NEURO 14:15
PROVIDERS: PCP Internal Medicine; Visit Provider Internal Medicine
DX: M79.671 Pain in right foot (principal); M79.672 Pain in left foot; G62.9 Polyneuropathy, unspecified
CPT/HCPCS: 95886; 95909

== ENCOUNTER → 2024-05-26 14:18 | Outpatient (BNV) | payer OTHER, SELFPAY | PROVIDERS: PCP Internal Medicine; Visit Provider Physical Medicine & Rehabilitation | DX: R20.0 Anesthesia of skin (principal); R20.2 Paresthesia of skin | CPT/HCPCS: 95886; 95909 ==

== ENCOUNTER 2024-06-30 13:31 | Outpatient (REF) | payer OTHER, SELFPAY ==
[2024-07-01 09:35] LABS: HPV 16,18/45 See PAP report
== END 2024-06-30 13:32 | disposition home or self-care (01) ==
LOC: HO.LNP 13:31
PROVIDERS: PCP Internal Medicine; Visit Provider Advanced Practice Midwife
DX: Z01.419 Encounter for gynecological examination (general) (routine) without abnormal findings (principal); Z98.51 Tubal ligation status
CPT/HCPCS: 87626; 88175; 99459

== ENCOUNTER 2024-06-30 13:31 | Outpatient (AMB) | payer OTHER, SELFPAY ==
[2024-06-30 13:31] VITALS: BP 120/70; BMI 30.9
--- NOTE | 2024-06-30 13:31 | A.OFFVIS_ITS ---
Vital Signs 06/30/24 13:31 Height 5 ft 2 in Weight 169 lb BMI 30.9 BP 120/70 Intake Visit Reasons: repeat pap Plate Slitter And Inspector Required: No Plate Slitter And Inspector Services: Plate Slitter And Inspector Present Information Interpreted: clinical only Signals Collector/Analyst: Signals Collector/Analyst Present Allergies Penicillins Allergy (Mild, Verified 05/02/24 11:07) HIVES vancomycin [Vancomycin] Allergy (Mild, Verified 05/02/24 11:07) ITCHING, severe itching penicillin G procaine Allergy (Unknown, Verified 05/02/24 11:07) itching, redness Shellfish Allergy (Mild, Uncoded 05/02/24 11:07) Anaphylaxis shellfish Allergy (Unknown, Uncoded 05/02/24 11:07) Anaphylaxis Medication List - Last Reconciled 06/30/24 by Debbie Zapata CNM cholecalciferol (vitamin D3) 25 mcg PO DAILY coenzyme Q10 100 mg PO DAILY epinephrine 0.3 mg (0.3 mL) IM ONCE PRN gabapentin 100 mg PO BEDTIME 30 days L.acid,gas,bree,rham-B.ani-cran 5 billion cell- 250 mg (up4 Probiotics Women's) 1 cap PO DAILY multivitamin with minerals (Hair,Skin and Nails tablet) 1 tab PO DAILY omega 2-hdh-ton-fish oil 300-1,000 mg (Fish Oil) 1 cap PO TID topiramate XR 100 mg PO BID 90 days Is last menstrual period known: Yes Last menstrual period: 06/26/24 HPI HPI repeat pap: Details: Patient is here to repeat a Pap that came back unsatisfactory in 2022. This provider thought that the exam would have been for an annual exam at this stage.. She has a history of tubal ligation and also uterine ablation to deal with her heavy periods that were not responsive to other therapies including Mirena. Her period did start coming back this fall and it is coming monthly it but it is very lighten spotting so she is okay with that she gets it at the same time as her 16-year-old daughter. She never had an abnormal Pap smears far she knows she did have a lump in her breast that needed to be removed so she makes sure she goes for her yearly mammograms. She is in the process of getting a full workup from Dr. Fontaine and is seen neurology and cardiology and other specialists to deal with symptoms that she has had for years including tingling her for hands and feet and her heart racing and occasional fluctuations of her blood pressure that are not normally able to be explained although her elevated pressure her last year's visit was because she went by the emergency room and her cousin had recently in the emergency room and it was emotionally challenging. She has absolutely no worries about STIs. She also has questions about when her 16-year-old daughter should start getting exams. [facility] Medical History (Updated 06/30/24 @ 16:48 by Debbie Zapata CNM) Mixed hyperlipidemia Fibromyalgia Obesity (BMI 30-39.9) Chiari I malformation Migraine Palpitations Surgical History (Updated 06/30/24 @ 14:23 by Debbie Zapata CNM) Hx of bilateral breast reduction surgery Hx of tubal ligation History of endometrial ablation Family History Mother Graves disease Other Congestive heart failure Diabetes Hypertension Stomach cancer Social History Housing: House Alcohol intake: current Alcohol intake frequency: holidays/special occasions only Patient Tobacco Use Status: Never used Tobacco e-Cigarette/Vaping Use: Never Used service: No Current occupational status: employed 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 Cognitive needs: No Hearing needs: No Vision needs: Yes (Glasses) Female Reproductive History Menstrual Age of Menarche: 13 Duration of menses: 3-5 days Date of last menstrual period: 06/26/24 control method: permanent sterilization Total pregnancies: 1 Full term: 1 Date of last pap smear: 03/10/23 (unsatisfactory,2019 WNL) Physical Exam Vital Signs: Last Vital Signs BP 120/70 06/30/24 13:31 BMI result Body Mass Index 30.9 Const General: healthy appearing, comfortable, no acute distress, well developed and alert Nutritional Appearance: average body habitus Orientation/consciousness: patient oriented x3 Limitations: no limitations HEENT Head: Yes normocephalic Neck Neck: Yes normal visual inspection Thyroid: Thyroid normal Chest Chest palpation & inspection: normal inspection of the chest Breast/axilla inspection: normal inspection of the breasts and normal inspection of the axillae Breast/axilla palpation: normal palpation of the breasts and normal palpation of the axillae Resp Effort & Inspection: normal respiratory effort GI Inspection: Yes normal to inspection, No Abdominal wall edema and No distended Palpation (GI): Soft to palpation and nontender Other: Vagina is pink and moist cervix nulliparous pink smooth healthy appearing did bleed with Pap smear scant clear mucus nontender with Pap good muscle tone noted. External Female Exam: normal external appearance and normal appearance of the urethra Speculum Exam - Vagina: normal appearance of the vagina and normal vaginal discharge Speculum Exam - Cervix: normal appearance of the cervix Neuro General: patient oriented x3 Results Reviewed Results Reviewed: Name: Dalia Rojo Age/Sex: 42/F Attending: Debbie Zapata CNM : 1980 Submitted by: Debbie Zapata CNM Copies to: MR #: [id number] Status: DEP REF Collected: 03/09/23 Location: [facility] Received: 03/10/23 Interpretation Unsatisfactory. Obscuring mucus. HPV mRNA E6/E7: NOT DETECTED This assay detects E6/E7 viral messenger RNA (mRNA) from 14 high-risk HPV types (16, 18, 31, 33, 35, 39, 45, 51, 52, 56, 58, 59, 66, 68) HPV testing performed by [facility], [place], [place]. See reference laboratory pion of the EMR for entire report. Clinical Information LMP: No menses Previous PAP test: 09/10/2018, WNL Material Received ThinPrep-Cervical Electronically Signed By: ERIC Garrido (ASCP) 03/19/23 1248 The Pap Test is a screening procedure with the inherent possibility of both false negative and false positive results. Results should be interpreted in the context of historic and current clinical findings. Reliability of the Pap Test is enhanced by performing the test on a regular repetitive basis. Patient: Dalia Rojo Age/Sex: 42/F MR#: [id number] Page 1 of 1 Assessment & Plan Assessment & Plan (1) Well woman exam with routine gynecological exam: Code(s): Z01.419 - Encounter for gynecological examination (general) (routine) without abnormal findings Category: Medical (2) Cervical cancer screening: Comment: 03/09/2023 Pap is unsatisfactory secondary to obscuring mucus with HPV negative need to repeat Pap.; Pap done 06/30/2024 Code(s): Z12.4 - Encounter for screening for malignant neoplasm of cervix Category: Medical (3) Breast cancer screening: Code(s): Z12.39 - Encounter for other screening for malignant neoplasm of breast Category: Medical (4) History of endometrial ablation: Code(s): Z98.890 - Other specified postprocedural states Category: Surgical (5) Hx of tubal ligation: Code(s): Z98.51 - Tubal ligation status Category: Surgical (6) Hx of bilateral breast reduction surgery: Code(s): Z98.890 - Other specified postprocedural states Category: Surgical Plan -----Discussed in this visit the following: healthy balanced diet, regular and consistent exercise, getting recommended health screens, doing the best she can for her particular health concerns, kegel exercises, pap smear screening and followup recommendations, mammography screening and SBE, normal changes in cycles in her life stage--- Patient is here to repeat a Pap that came back unsatisfactory in 2022. This provider thought that the exam would have been for an annual exam at this stage.. She has a history of tubal ligation and also uterine ablation to deal with her heavy periods that were not responsive to other therapies including Mirena. Her period did start coming back this fall and it is coming monthly it but it is very lighten spotting so she is okay with that she gets it at the same time as her 16-year-old daughter. She never had an abnormal Pap smears far she knows she did have a lump in her breast that needed to be removed so she makes sure she goes for her yearly mammograms. She is in the process of getting a full workup from Dr. Fontaine and is seen neurology and cardiology and other specialists to deal with symptoms that she has had for years including tingling her for hands and feet and her heart racing and occasional fluctuations of her blood pressure that are not normally able to be explained although her elevated pressure her last year's visit was because she went by the emergency room and her cousin had recently in the emergency room and it was emotionally challenging. She has absolutely no worries about STIs. She also has questions about when her 16-year-old daughter should start getting exams. Education done. about the current out recommendations and intervals for routine screening for cervical cancer , and the protective role of the Gardasil vaccine which she says her daughter has gotten. The patient herself has never had an abnormal Pap smear. Reviewed that while we say come back for 1 year for an annual exam if there are no abnormalities her next Pap smear would be due in 5 years though after 3 years she would be considered a new patient. She is up-to-date on her mammogram screening. She is in the midst of complete evaluation for her unusual symptoms that have been going on for her for years and she is feeling very good about that process and Dr. Fontaine's referrals for her. We will see her in 1 year or longer if she deems that appropriate. Orders: Orders Pap Smear Today Z01.419 - Encounter for gynecological examination (general) (routine) without abnormal findings Coding Level of Care Code Est Pt Prev Care 40-64y(57561) Diagnoses Well woman exam with routine gynecological exam Z01.419 Cervical cancer screening Z12.4 Breast cancer screening Z12.39 History of endometrial ablation Z98.890 Hx of tubal ligation Z98.51 Hx of bilateral breast reduction surgery Z98.890
== END 2024-06-30 14:24 | disposition home or self-care (01) ==
LOC: HO.HWSM 13:31
PROVIDERS: PCP Internal Medicine; Visit Provider Advanced Practice Midwife
DX: Z01.419 Encounter for gynecological examination (general) (routine) without abnormal findings (principal); Z98.890 Other specified postprocedural states; Z98.51 Tubal ligation status
CPT/HCPCS: 99396; 99459

== ENCOUNTER → 2024-07-29 09:42 | Outpatient (BNV) | payer OTHER, SELFPAY | PROVIDERS: PCP Internal Medicine; Visit Provider Physician Assistant Surgical | DX: R13.10 Dysphagia, unspecified (principal) | CPT/HCPCS: 74246; 74248 ==

== ENCOUNTER 2024-09-26 10:57 | Outpatient (AMB) | payer OTHER, SELFPAY ==
[2024-09-26 11:01] VITALS: BP 128/88; PULSE 71; BMI 31.6
--- NOTE | 2024-09-26 11:01 | MHC.OFFVIS ---
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 Required: No Accompanied by: Self / Same As Patient Allergies Penicillins Allergy (Mild, Verified 09/26/24 11:05) HIVES vancomycin [Vancomycin] Allergy (Mild, Verified 09/26/24 11:05) ITCHING, severe itching penicillin G procaine Allergy (Unknown, Verified 09/26/24 11:05) itching, redness Shellfish Allergy (Mild, Uncoded 05/02/24 11:07) Anaphylaxis shellfish Allergy (Unknown, Uncoded 05/02/24 11:07) Anaphylaxis Medication List - Last Reconciled 09/26/24 by Andre Patrick MD cholecalciferol (vitamin D3) 25 mcg PO DAILY coenzyme Q10 100 mg PO DAILY epinephrine 0.3 mg (0.3 mL) IM ONCE PRN gabapentin 100 mg PO BEDTIME 30 days L.acid,gas,bree,rham-B.ani-cran 5 billion cell- 250 mg (up4 Probiotics Women's) 1 cap PO DAILY multivitamin with minerals (Hair,Skin and Nails tablet) 1 tab PO DAILY omega 3-zqj-eif-fish oil 300-1,000 mg (Fish Oil) 1 cap PO TID topiramate XR 100 mg PO BID 90 days HPI Comments Details: Dalia is here for consultation regarding palpitations and shortness of breath. She states that after the of her daughter almost 16 years ago she has been noticing some palpitations. These are intermittent and can happen any time. No specific provoking factors. She feels brief sensations of heart fluttering and a sensation in the throat. Could be supraventricular or ventricular ectopy. Does not appear like sustained arrhythmias. She also feels some shortness of breath at different times. Could be during rest as well. She feels as though she needs takes some deep breaths. No clear-cut angina. No previous cardiac history otherwise. Maternal aunt carries a diagnosis of cardiomyopathy. [facility] Medical History (Updated 09/26/24 @ 11:21 by Andre Patrick MD) Mixed hyperlipidemia Fibromyalgia Obesity (BMI 30-39.9) Chiari I malformation Migraine Palpitations Surgical History Hx of bilateral breast reduction surgery Hx of tubal ligation History of endometrial ablation Family History (Updated 09/26/24 @ 11:22 by Andre Patrick MD) Mother Graves disease Maternal Aunt Cardiomyopathy Other Congestive heart failure Diabetes Hypertension Stomach cancer Social History Housing: House Alcohol intake: current Alcohol intake frequency: holidays/special occasions only Patient Tobacco Use Status: Never used Tobacco e-Cigarette/Vaping Use: Never Used service: No Current occupational status: employed 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 Cognitive needs: No Hearing needs: No Vision needs: Yes (Glasses) Female Reproductive History Menstrual Age of Menarche: 13 Review of Systems Const Denies chills, Denies daytime sleepiness, Denies fatigue, Denies fever(s), Denies poor appetite, Denies snoring, Denies stops breathing during sleep, Denies weakness, Denies weight gain and Denies weight loss Eyes Denies loss of vision ENT Denies dizziness and Denies hearing loss Card Denies chest pain, Denies irregular heart rhythm, Denies claudication, Denies leg edema, Denies lightheadedness, Reports palpitations, Reports dyspnea, Denies dyspnea on exertion and Denies orthopnea Resp Denies cough, Denies excessive phlegm production, Reports dyspnea, Denies dyspnea on exertion, Denies snoring and Denies wheezing GI Denies abdominal pain, Denies hematochezia, Denies change in bowel habits, Denies nausea and Denies vomiting Denies urinary frequency and Denies dysuria Musc Denies arthralgias, Denies muscle weakness, Denies numbness and Denies other Skin/Breast Denies nail changes and Denies rash Neuro Denies Abnormal speech present, Denies dizziness, Denies loss of vision, Denies memory loss, Denies numbness and Denies weakness Psych Denies depression and Denies memory loss Endo Denies fatigue and Reports palpitations Zain/Lymph Denies easy bruising Aller/Immun Denies wheezing Physical Exam Vital Signs: Last Vital Signs Pulse 71 09/26/24 11:01 BP 128/88 09/26/24 11:01 BMI result Body Mass Index 31.6 Const General: comfortable and no acute distress Orientation/consciousness: patient oriented x3 HEENT Other: Unremarkable Head: Yes normal to inspection Neck Neck: Yes normal visual inspection Chest Chest palpation & inspection: normal inspection of the chest Resp Auscultation: clear to auscultation bilaterally Cardio Palpation: normal PMI Heart sounds: S1 normal heart sound present, S2 normal heart sound present, no gallops, no murmurs and no rubs GI Palpation (GI): Soft to palpation Back/Spine/Pelvis Other: unremarkable Skin General skin exam: no rashes or lesions noted Neuro General: patient oriented x3 Speech: No Abnormal speech present Extrem General: Yes normal to inspection Psych Mental Status: mental status grossly normal Office Procedures EKG Details: EKG with underlying sinus rhythm at 71/Min; nonspecific ST-[place] changes; [place] [id number], Complete Assessment & Plan Assessment & Plan (1) Palpitations: Code(s): R00.2 - Palpitations Category: Medical Plan: Could be supraventricular or ventricular ectopy. Less likely other arrhythmias like atrial fibrillation or flutter. We will get a Holter monitor for further evaluation. (2) SOB (shortness of breath): Code(s): R06.02 - Shortness of breath Category: Medical Plan: Sounds nonspecific. Less likely cardiac as she is describing even at rest. Obtain echocardiogram. Orders: Orders CA echo transthoracic complete Today R06.02 - Shortness of breath ECG 7 day holter monitor Today R00.2 - Palpitations Coding Level of Care Code New Pt Level 4 (27817) Diagnoses Palpitations R00.2 SOB (shortness of breath) R06.02 CPT Codes EKG - CPT: 23278-[id number], Complete ([id number])
== END 2024-09-26 11:26 | disposition home or self-care (01) ==
LOC: HO.HCS 10:57
PROVIDERS: PCP Internal Medicine; Visit Provider Internal Medicine
DX: R00.2 Palpitations (principal); R06.02 Shortness of breath
CPT/HCPCS: 93010; 99204

== ENCOUNTER 2024-09-26 11:41 | Outpatient (REF) | payer OTHER, SELFPAY ==
--- NOTE | ~2024-09-26 | MM_ITS ---
EXAMINATION: MM SCREENING DIGITAL BREAST TOMOSYNTHESIS, BILATERAL CLINICAL INFORMATION: Screening. Asymptomatic. COMPARISON: Mammography: Comparison is made with available priors TECHNIQUE: Digital breast mammography with tomosynthesis is performed in both the craniocaudal and mediolateral oblique views along with computer-aided detection (CAD). FINDINGS: There are scattered areas of fibroglandular density (ACR BI-RADS breast composition Category b). There are no significant masses, abnormal calcifications, or other abnormalities. MM/MM tomosynthesis screening BI IMPRESSION: No mammographic evidence of malignancy. ASSESSMENT: BI-RADS BI-RADS 1 - Negative RECOMMENDATION: Routine annual mammography screening. 1 year F/U This examination should not preclude the clinical evaluation of a suspicious palpable abnormality. This patient's information was entered into a reminder system with a target due date for their next mammogram. Electronically signed by: Brianne Haq DO 10/02/2024 07:56 PM EDT
== END 2024-09-26 11:42 | disposition home or self-care (01) ==
LOC: HO.MAMMO 11:41
PROVIDERS: PCP Internal Medicine; Visit Provider Internal Medicine
DX: Z12.31 Encounter for screening mammogram for malignant neoplasm of breast (principal); R06.02 Shortness of breath; R00.2 Palpitations
CPT/HCPCS: 77063; 77067; 93005; 99202

== ENCOUNTER → 2024-09-26 12:00 | Outpatient (BNV) | payer OTHER, SELFPAY | PROVIDERS: PCP Internal Medicine; Visit Provider Internal Medicine | DX: Z12.31 Encounter for screening mammogram for malignant neoplasm of breast (principal) | CPT/HCPCS: 77063; 77067 ==

== ENCOUNTER → 2024-10-28 14:02 | Outpatient (REF) | payer OTHER, SELFPAY ==
--- NOTE | 2024-10-28 14:11 | CA_ITS ---
Transthoracic Echocardiogram Patient (Last, First, Middle): Dalia Rojo L Gender: Female Date of : 1980 Age: 44 Procedure Date: 10/28/2024 Procedure Type: Transthoracic Echocardiogram Location: OP Height: 157.48 cm Weight: 78.02 kg BSA: 1.79 m2 Heart Rate: bpm BP: 128 / 88 mmHg Ornament Maker Hand: TO Referring MD: Andre Patrick MD Symptoms: R06.02 - Shortness of breath Study Quality: Adequate w contrast ECG Rhythm: Sinus Conclusions: - The left ventricular systolic function is mildly decreased. The calculated ejection fraction is 47% by biplane method. - No obvious valvular pathology seen on this study. Findings Procedure Information Contrast agent, definity, is being given per protocol without apparent complications. Left Ventricle Normal left ventricular cavity size. There is normal left ventricular wall thickness. The left ventricular systolic function is mildly decreased. The calculated ejection fraction is 47% by biplane method. There is mild global hypokinesis. Diastolic function is normal for age. Right Ventricle Normal right ventricular cavity size and systolic function. Atria Both atria are normal in size. Aortic Valve There is a normal trileaflet aortic valve. There is no aortic valve stenosis. There is no aortic valve regurgitation. Mitral Valve The mitral valve appears normal. There is no mitral valve regurgitation. There is no mitral valve stenosis. Pulmonic Valve The pulmonic valve is likely normal. Tricuspid Valve There is trace tricuspid valve regurgitation. There is no evidence of pulmonary hypertension. Great Vessels The asc aorta is normal in size. Venous The inferior vena cava is normal in size and collapses greater than 50% with inspiration. Pericardium/Pleural There is a trivial pericardial effusion. Prior Study Comparison No prior study available for comparison. Recommendations, Care & Conclusions No obvious valvular pathology seen on this study. Measurements 2D Linear Measurements IVSd: 0.85 0.6-0.9/0.6-1.0 cm LVIDd: 4.49 3.9-5.3/4.2-5.9 cm LVIDd Index: 2.51 2.4-3.2/2.2-3.1 cm/m2 LVIDs: 3.31 2.0-3.6 cm LVPWd: 0.85 0.7-1.1 cm LA Diam: 3.40 2.7-3.8/3.0-4.0 cm LAIDs Index: 1.90 1.5-2.3 cm/m2 LV Mass: 153.00 67-162/88-224 g LV Mass Index: 85.48 43-95/49-115 g/m2 LVOT Diam: 2.20 3.0+(-)1.3 cm 2D Systolic Function EF 4C: 49.10 >55% EF 2C: 47.20 >55% EF BiP: 47.10 >55% Mitral Valve MV Pk E: 0.62 MV PK A: 0.89 MV Decel Time: 143.00 E/A: 0.70 E'Lateral: 7.83 E'Medial: 6.53 E/E' Med: 9.50 E/E' Lat: 7.90 PHT: 42.00 MVA PHT: 5.24 Decel Randolph: 4.34 Aortic Valve AoV Pk Lucien: 1.10 AoV Mn Lucien: 0.79 AoV VTI: 0.22 AoV Pk Grad: 5.00 Aov Mn Grad: 3.00 ROJAS Cont.VTI: 2.47 LVOT LVOT Pk Lucien: 0.74 LVOT Mn Lucien: 0.55 LVOT VTI: 0.15 LVOT Pk Grad: 2.00 LVOT Mn Grad: 1.00 LVOT Diam: 2.20 LVOT Area: 3.80 Diastolic Function MV Pk E: 0.62 MV Pk A: 0.89 E/A: 0.70 E'Medial: 6.53 E/E' Med: 9.50 E' Laterial: 7.83 E/E' Lat: 7.90 Right Ventricle TAPSE (mm): 17.40 TVS' Lucien: 11.00 Tricuspid Valve TR Pk Lucien: 1.91 TR Pk Grad: 15.00 RA Press: 3.00 RVSP: 18.00 Great Vessels Aorta Sinus of Valsalva: 3.26 2.0-3.5 cm Ao Asc: 2.90 2.1-3.4 cm Updated in Other Vendor System with Status of Final Andre Patrick MD electronically signed on 10/29/2024 12:08:48 PM with status of Final
== END ==
LOC: HO.CARD 14:02
PROVIDERS: PCP Internal Medicine; Visit Provider Internal Medicine
DX: R00.2 Palpitations (principal)
CPT/HCPCS: 93242; 93306; Q9957

== ENCOUNTER → 2024-10-28 14:11 | Outpatient (BNV) | payer OTHER, SELFPAY | PROVIDERS: PCP Internal Medicine; Visit Provider Internal Medicine | DX: R06.02 Shortness of breath (principal) | CPT/HCPCS: 93306 ==

== ENCOUNTER 2024-10-31 12:59 | Outpatient (AMB) | payer OTHER, SELFPAY ==
[2024-10-31 13:05] VITALS: BP 126/80; PULSE 84; O2SAT 97; BMI 31.5
--- NOTE | 2024-10-31 13:05 | MHC.PC.OV ---
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 Accompanied by: Self / Same As Patient Allergies Penicillins Allergy (Mild, Verified 10/31/24 13:19) HIVES vancomycin [Vancomycin] Allergy (Mild, Verified 10/31/24 13:19) ITCHING, severe itching penicillin G procaine Allergy (Unknown, Verified 10/31/24 13:19) itching, redness Shellfish Allergy (Mild, Uncoded 10/31/24 13:19) Anaphylaxis shellfish Allergy (Unknown, Uncoded 10/31/24 13:19) Anaphylaxis Medication List - Last Reconciled 10/31/24 by Ankur Fontaine MD cholecalciferol (vitamin D3) 25 mcg PO DAILY coenzyme Q10 100 mg PO DAILY epinephrine 0.3 mg (0.3 mL) IM ONCE PRN gabapentin 100 mg PO BEDTIME 30 days L.acid,gas,bree,rham-B.ani-cran 5 billion cell- 250 mg (up4 Probiotics Women's) 1 cap PO DAILY multivitamin with minerals (Hair,Skin and Nails tablet) 1 tab PO DAILY omega 5-rqi-tsp-fish oil 300-1,000 mg (Fish Oil) 1 cap PO TID topiramate XR 100 mg PO BID 90 days Tobacco use date assessed: 10/31/24 Dental Screening Dental Screen Date: 10/31/24 Did you have a dental visit in the last 12 months?: Yes Did you have a dental problem in the last 6 months where you did not have access to dental care?: No Was dental information given to patient?: Patient has dentist HPI 6 Months f/u HPI Details Patient comes in today for her follow up visit Notes that her headaches have been better controlled lately She denies any dizziness Denies any chest pains, no increased SOB No nausea/vomiting, no abdominal pain No change in bowel habits noted She was not able to get her follow up labs done yet - states that she will try to get them done [facility] Medical History Mixed hyperlipidemia Fibromyalgia Obesity (BMI 30-39.9) Chiari I malformation Migraine Palpitations Surgical History Hx of bilateral breast reduction surgery Hx of tubal ligation History of endometrial ablation Family History Mother Graves disease Maternal Aunt Cardiomyopathy Other Congestive heart failure Diabetes Hypertension Stomach cancer Social History Housing: House Alcohol intake: current Alcohol intake frequency: holidays/special occasions only Patient Tobacco Use Status: Never used Tobacco e-Cigarette/Vaping Use: Never Used service: No Current occupational status: employed 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 1. Little interest or pleasure in doing things: not at all 2. Feeling down, depressed, or hopeless: not at all 3. Trouble falling or staying asleep, or sleeping too much: not at all 4. Feeling tired or having little energy: several days 5. Poor appetite or overeating: not at all 6. Feeling bad about yourself - or that you are a failure or have let yourself or your family down: not at all 7. Trouble concentrating on things, such as reading the newspaper or watching television: not at all 8. Moving or speaking so slowly that other people could have noticed. Or the opposite - being so fidgety or restless that you have been moving around a lot more than usual: not at all 9. Thoughts that you would be better off or of hurting yourself in some way: not at all Total score: 1 Depression Screening Interpretation: Negative Depression Screening Done: Yes 63607 - PHQ-9 Billing: Yes Source: Developed by Drs. Maico Angeles, Lesia Montero, Guanako Nova and colleagues, with an educational chelle from [employer]. Thrive Questionnaire Date Thrive assessed: 10/31/24 I am a: Patient What is your living situation today?: I have a steady place to live Within the past 12 months, did the food you bought not last and you didn't have the money to get more?: Never true Within the past 12 months, did you worry whether your food would run out before you got money to buy more?: Never true Do you have trouble paying for medicines?: No Do you have trouble getting transportation to medical appointments?: No Do you have trouble paying your heating and electricity bill?: No Do you have trouble taking care of your child, family member or friend?: No Do you have trouble with day-to-day activities such as bathing, preparing meals, shopping, managing finances, etc.?: No Are you currently unemployed and looking for a job?: No Are you interested in more education?: No Please select the resources that you would like help with: None Currently or been in a relationship where the following occur: No concerns reported THRIVE Score: 0 AUDIT C Alcohol Use Questionnaire (AUDIT-C) 1. How often do you have a drink containing alcohol?: 2-4 times a month 2. How many drinks containing alcohol do you have on a typical day when you are drinking?: 1 or 2 3. How often do you have six or more drinks on one occasion?: Never Total Score: 2 Score Reviewed/Action Taken: Yes MAYRA-7 AMB Questionnaire MAYRA-7 Date MAYRA - 7 assessed: 10/31/24 Feeling nervous, anxious, or on edge: 0 = Not at all Not being able to stop or control worryin = Not at all Worrying too much about different things: 0 = Not at all Trouble relaxin = Not at all Being so restless that it is hard to sit still: 0 = Not at all Becoming easily annoyed or irritable: 0 = Not at all Feeling afraid as if something awful might happen: 0 = Not at all Total MAYRA-7 score (0-4 normal; 5-9 mild; 10-14 moderate; 15-21 severe): 0 Source: Developed by Drs. Maico Angeles, Lesia Montero, Guanako Nova and colleagues, with an educational chelle from [employer]. Review of Systems Const Reports body aches (diffuse), Denies chills, Reports fatigue, Denies fever(s) and Reports headache(s) (better controlled lately) ENT Denies dysphagia, Denies dizziness, Denies otalgia, Reports headache(s) (better controlled lately), Denies neck pain, Denies odynophagia and Denies sore throat Card Denies chest pain, Denies irregular heart rhythm (but reports experiencing palpitations/tachycardia at times), Reports palpitations (on and off - see HPI) and Denies dyspnea Resp Denies chest congestion, Denies cough and Denies dyspnea GI Denies abdominal pain, Denies constipation, Denies dysphagia, Denies heartburn, Denies diarrhea, Denies nausea, Denies odynophagia and Denies vomiting Denies difficulty voiding, Denies nocturia, Denies dysuria and Denies urinary urgency Musc Denies back pain, Reports myalgias (diffuse), Reports arthralgias (involving multiple joints, including her wrists and elbows) and Denies neck pain Skin/Breast Denies rash Neuro Reports burning sensations (in both feet, recurrent, often at night), Denies dizziness and Reports headache(s) (better controlled lately) Endo Reports fatigue and Reports palpitations (on and off - see HPI) Physical exam (Primary Care) Vital Signs: Last Vital Signs Pulse 84 10/31/24 13:05 BP 126/80 10/31/24 13:05 Pulse Ox 97 10/31/24 13:05 Oxygen Delivery Method Room Air 10/31/24 13:05 BMI result Body Mass Index 31.5 Tobacco/Smoking Status: Tobacco use Status Tobacco use date assessed 10/31/24 10/31/24 13:10 Patient Tobacco Use Status Never used Tobacco 10/31/24 13:10 Tobacco use type 09/26/24 11:25 e-Cigarette/Vaping Use Never Used 10/31/24 13:10 PHQ-9: PHQ-9 Score PHQ-9: Total score 1 10/31/24 13:20 Depression Screening Interpretation: Negative Thrive Assessment: Date of Thrive Assessment Date Thrive assessed 10/31/24 10/31/24 13:10 Currently or been in a relationship where the following occur: No concerns reported Const General: no acute distress and alert HENMT Throat: Yes posterior oropharynx normal and Yes tonsils normal (no TP congestion) Neck Neck: Yes supple and No lymphadenopathy Thyroid: Thyroid normal Resp Auscultation: clear to auscultation bilaterally, no rales and no wheezes Cardio Rate: regular rate Rhythm: abnormal rhythm with ectopic beats Heart sounds: no murmurs GI Palpation (GI): Soft to palpation and nontender Auscultation: normal bowel sounds General: Yes no CVA tenderness Back/Spine/Pelvis Back: no CVA tenderness Thoracic/Lumbar Spine: No lumbar spinal tenderness Skin Rashes: no rashes Extrem General: Yes no clubbing, cyanosis or edema Coding Level of Care Code Est Pt Level 4 (01780) Diagnoses Palpitations R00.2 Mixed hyperlipidemia E78.2 Fibromyalgia M79.7 Chronic nonintractable headache, unspecified headache type R51.9; G89.29 Headache type: unspecified Intractability: not intractable Chiari I malformation G93.5 Neuropathy G62.9 Obesity (BMI 30-39.9) E66.9 Additional Codes PHQ-9 - 13336 - PHQ-9 Billing: Yes ([id number]) Assessment & Plan Assessment & Plan (1) Palpitations: Code(s): R00.2 - Palpitations Category: Medical Plan: 12 lead EKG done at [facility] back in July 2023 revealed NSR with non-specific T-wave abnormality As patient continues to experience her recurrent symptoms of palpitations/skipped beats over the past several months, she was referred to cardiology for further evaluation and management She was just seen by Cardiology last month and sent for echocardiogram and Holter monitoring for several evaluation Echocardiogram revealed global hypokinesia with mildly decreased left ventricular systolic function - EF is at 47%. No obvious valvular pathology is seen and diastolic function is normal for her age Holter monitor revealed baseline rhythm is sinus, with average heart of 84 beats per minute. Rare PACs and PVCs noted without significant pauses. No patient reported events Follow up with cardiology as scheduled (2) Mixed hyperlipidemia: Code(s): E78.2 - Mixed hyperlipidemia Category: Medical Plan: She was not able to get her follow up labs done prior to her appointment today and is instructed to get them done ANGEL Patient is reminded that her labs done back in July 2023 at [facility] revealed high cholesterol levels - total cholesterol 256, TG 198, HDL 48 and LDL 168 mg/dl Reinforced low cholesterol diet (3) Fibromyalgia: Code(s): M79.7 - Fibromyalgia Category: Medical Plan: She was seen by rheumatology a few months ago and was advised that most of her arthralgia and myalgias are due to fibromyalgia She was reassured that she does not appear to have any findings consistent with any inflammatory joint disease She is encouraged to continue to try to stay active and exercise regularly to help manage her fibromyalgia symptoms (4) Chronic headaches: Code(s): R51.9 - Headache, unspecified; G89.29 - Other chronic pain Category: Medical Qualifiers: Headache type: unspecified Intractability: not intractable Qualified Code(s): R51.9 - Headache, unspecified; G89.29 - Other chronic pain Plan: These are likely related to her Chiari I malformation but patient also has a Hx of migraine headaches Continue Topiramate XR 100 mg BID for headache prophylaxis She was seeing Dr. Denise Lancaster at [facility] for follow up of her headaches but was informed that Dr. Lancaster is leaving the practice for [place] and she will be seeing another neurologist in the same practice at her next appointment (5) Chiari I malformation: Code(s): G93.5 - Compression of brain Category: Medical Plan: Follow up with neurology as scheduled (6) Neuropathy: Code(s): G62.9 - Polyneuropathy, unspecified Category: Medical Plan: Involving both feet/lower extremities Patient was sent for EMG and NCV of both lower extremities for further evaluation - she had these done back in May 2024 and both tests came back normal. There were no electrodiagnostic evidence for peroneal neuropathy, tibial neuropathy, lumbosacral plexopathy, lumbar radiculopathy, or peripheral neuropathy Continue Gabapentin 100 mg Q HS (7) Obesity (BMI 30-39.9): Code(s): E66.9 - Obesity, unspecified Category: Medical Plan: Reinforced diet/exercise as tolerated/lose weight Plan Follow up in 3 months Orders: Orders TSH reflex Free T4 3 Months E78.00 - Pure hypercholesterolemia, unspecified Complete Blood Count Auto Diff 3 Months D64.9 - Anemia, unspecified Comprehensive [place]. Panel Fast 3 Months E78.00 - Pure hypercholesterolemia, unspecified Lipid Panel 3 Months E78.00 - Pure hypercholesterolemia, unspecified UA CC w/rflx Micro + Cult 3 Months R30.0 - Dysuria Vitamin D 25-OH Total 3 Months E55.9 - Vitamin D deficiency, unspecified Medications: New albuterol sulfate 90 mcg/actuation (Ventolin HFA) 2 puffs inhalation Q6H PRN 8.5 grams 5RF shortness of breath or wheezing 30 days
== END 2024-10-31 13:44 | disposition home or self-care (01) ==
LOC: HO.HMCH 13:00
PROVIDERS: PCP Internal Medicine; Visit Provider Internal Medicine
DX: R00.2 Palpitations (principal); G93.5 Compression of brain; Z68.31 Body mass index [BMI] 31.0-31.9, adult; E66.9 Obesity, unspecified; E78.2 Mixed hyperlipidemia; M79.7 Fibromyalgia; R51.9 Headache, unspecified; G89.29 Other chronic pain; G62.9 Polyneuropathy, unspecified

== ENCOUNTER → 2024-10-31 12:59 | Outpatient (BNVA) | payer OTHER, SELFPAY | PROVIDERS: PCP Internal Medicine; Visit Provider Internal Medicine | DX: R00.2 Palpitations (principal); E78.2 Mixed hyperlipidemia; M79.7 Fibromyalgia; R51.9 Headache, unspecified; G89.29 Other chronic pain; G93.5 Compression of brain; G62.9 Polyneuropathy, unspecified; E66.9 Obesity, unspecified; Z68.31 Body mass index [BMI] 31.0-31.9, adult; Z71.3 Dietary counseling and surveillance | CPT/HCPCS: 96127; 99212 ==

== ENCOUNTER 2024-11-11 15:37 | Outpatient (REF) | payer OTHER, SELFPAY ==
[2024-11-11 15:51] LABS: MANUAL DIFF FLAG NO
[2024-11-11 16:09] LABS: Basophils Absolute Auto 0.1 X10*3/uL (0.0-0.2); Basophils Percent Auto 0.8 % (0-2); Eosinophils Absolute Auto 0.4 X10*3/uL (0.0-0.4); Eosinophils Percent Auto 4.9 % (0-4); Hematocrit 41.4 % (37.0-47.0); Hemoglobin 14.3 g/dl (12.0-16.0); Imm Gran Abs Auto 0.04 X10*3/uL (0.00-0.03); Imm Gran Pct Auto 0.5 % (0.0-0.4); Lymphocytes Absolute Auto 2.9 X10*3/uL (1.2-4.9); Lymphocytes Percent Auto 34.2 % (20-40); Mean Corpuscular HGB Conc 34.5 g/dl (31.0-35.0); Mean Platelet Volume 9.5 fL (9.4-12.3); Monocytes Absolute Auto 0.7 X10*3/uL (0.1-1.2); Monocytes Percent Auto 8.6 % (2-11); Neutrophils Absolute Auto 4.3 x10*3/uL (2.0-8.3); Platelet Count 273 X10*3/uL (160-400); Red Blood Count 4.76 X10*6/uL (4.20-5.50); Red Cell Distribution Width 12.9 % (11.0-16.0); White Blood Count 8.4 X10*3/uL (4.8-10.8)
[2024-11-11 16:26] LABS: Appearance Urine Cloudy; Color Urine Yellow; Glucose Urine UA Negative (Negative); Leukocyte Esterase Urine Trace (Negative); Nitrite Urine Negative (Negative); UMIC TRIGGER UACC YES; Urine Blood Negative (Negative); Urine Ketones Negative (Negative); Urine Protein Negative (Neg-Trace)
[2024-11-11 16:29] LABS: Bacteria Urine Trace (None Seen); Hyaline Casts Urine 0-2 /LPF (0-2); RBC Urine 0-2 /HPF (0-2); WBC Urine 0-5 /HPF (0-5)
[2024-11-11 16:47] LABS: Alanine Aminotransferase 19 U/L (0-31); Albumin Level 4.5 g/dL (3.5-5.0); Alkaline Phosphatase 64 U/L (39-117); Anion Gap 10 (12-20); Aspartate Amino Transferase 21 U/L (5-31); Bilirubin Total 0.3 mg/dL (0.0-1.0); Blood Urea Nitrogen 11 mg/dL (9-16); C Reactive Protein 0.31 mg/dL (< or = 0.50); Calcium 8.8 mg/dL (8.4-10.2); Carbon Dioxide 22 mmol/L (22-29); Chloride 112 mmol/L (96-108); Cholesterol 253 mg/dL (<200); Estimated Glomerular Filt Rate > 60; Glucose Fasting 94 mg/dL (60-99); Glucose Random 94 mg/dL (60-115); HDL Cholesterol 45 mg/dL (>40); LDL Cholesterol Calculated 162 mg/dL (<100); Potassium 3.4 mmol/L (3.3-5.1); Sodium 141 mmol/L (135-145); Total Protein 7.8 g/dL (6.5-8.0); Triglycerides 231 mg/dL (<150)
[2024-11-11 16:48] LABS: Erythrocyte Sedimentation Rate 10 MM/HR (0-20)
[2024-11-11 17:06] LABS: Folate 10.1 ng/mL (> or = 4.0); Vitamin B12 338 pg/mL (200-900)
[2024-11-11 17:09] LABS: Vitamin D 25-OH Total 78.4 ng/mL (>30)
== END 2024-11-11 15:38 | disposition home or self-care (01) ==
LOC: HO.LAB 15:37
PROVIDERS: PCP Internal Medicine; Visit Provider Internal Medicine
DX: I42.9 Cardiomyopathy, unspecified (principal); M79.7 Fibromyalgia; G62.9 Polyneuropathy, unspecified; E78.00 Pure hypercholesterolemia, unspecified; D64.9 Anemia, unspecified; E53.8 Deficiency of other specified B group vitamins; E55.9 Vitamin D deficiency, unspecified
CPT/HCPCS: 36415; 80048; 80053; 80061; 81001; 82306; 82607; 82746; 84443; 85025; 85652; 86140

== ENCOUNTER 2024-12-07 13:43 | Outpatient (AMB) | payer OTHER, SELFPAY ==
[2024-12-07 13:47] VITALS: BP 120/78; PULSE 74; BMI 31.3
--- NOTE | 2024-12-07 13:47 | A.OFFVIS_ITS ---
Vital Signs 12/07/24 13:47 Height 5 ft 2 in Weight 171 lb BMI 31.3 BP 120/78 Blood Pressure Location Lt brachial Position Sitting Pulse 74 Pulse Source Pulse Oximeter Intake Visit Reasons: follow up cta Allergies Penicillins Allergy (Mild, Verified 10/31/24 13:19) HIVES vancomycin (Vancomycin) Allergy (Mild, Verified 10/31/24 13:19) ITCHING, severe itching penicillin G procaine Allergy (Unknown, Verified 10/31/24 13:19) itching, redness Shellfish Allergy (Mild, Uncoded 10/31/24 13:19) Anaphylaxis shellfish Allergy (Unknown, Uncoded 10/31/24 13:19) Anaphylaxis Medication List - Last Reconciled 12/07/24 by Andre Patrick MD albuterol sulfate 90 mcg/actuation (Ventolin HFA) 2 puffs inhalation Q6H PRN 30 days cholecalciferol (vitamin D3) 25 mcg PO DAILY coenzyme Q10 100 mg PO DAILY epinephrine 0.3 mg (0.3 mL) IM ONCE PRN gabapentin 100 mg PO BEDTIME 30 days L.acid,gas,bree,rham-B.ani-cran 5 billion cell- 250 mg (up4 Probiotics Women's) 1 cap PO DAILY multivitamin with minerals (Hair,Skin and Nails tablet) 1 tab PO DAILY omega 7-ujk-psp-fish oil 300-1,000 mg (Fish Oil) 1 cap PO TID topiramate XR 100 mg PO BID 90 days HPI Comments Details: Dalia returns for follow-up regarding palpitations shortness of breath. She states that after the of her daughter almost 16 years ago she has been noticing some palpitations. These are intermittent and can happen any time. No specific provoking factors. She feels brief sensations of heart fluttering and a sensation in the throat. Suggestive of ectopy. Does not appear like sustained arrhythmias. She also feels some shortness of breath at different times. Could be during rest as well. She feels as though she needs takes some deep breaths. No clear-cut angina. No previous cardiac history otherwise. Maternal aunt carries a diagnosis of cardiomyopathy. She has completed an echocardiogram, coronary CTA and Holter. [facility] Medical History Mixed hyperlipidemia Fibromyalgia Obesity (BMI 30-39.9) Chiari I malformation Migraine Palpitations Surgical History Hx of bilateral breast reduction surgery Hx of tubal ligation History of endometrial ablation Family History Mother Graves disease Maternal Aunt Cardiomyopathy Other Congestive heart failure Diabetes Hypertension Stomach cancer Social History Housing: House Alcohol intake: current Alcohol intake frequency: holidays/special occasions only Patient Tobacco Use Status: Never used Tobacco e-Cigarette/Vaping Use: Never Used service: No Current occupational status: employed 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 Cognitive needs: No Hearing needs: No Vision needs: Yes (Glasses) Female Reproductive History Menstrual Age of Menarche: 13 Review of Systems Const Denies weakness ENT Denies dizziness Card Denies chest pain, Denies chest pain with activity, Denies syncope, Denies rapid heart rate, Denies pedal edema, Denies edema, Denies leg edema, Denies lightheadedness, Denies palpitations, Denies dyspnea, Denies dyspnea on exertion and Denies orthopnea Resp Denies cough, Denies dyspnea and Denies dyspnea on exertion GI Denies hematochezia and Denies change in stool character Musc Denies abnormal gait, Denies muscle cramps, Denies muscle weakness, Denies numbness, Denies radiating pain into limb and Denies tingling Neuro Denies abnormal gait, Denies dizziness, Denies syncope, Denies numbness, Denies tingling and Denies weakness Endo Denies palpitations Physical Exam Vital Signs: Last Vital Signs Pulse 74 12/07/24 13:47 BP 120/78 12/07/24 13:47 BMI result Body Mass Index 31.3 Const General: comfortable and no acute distress Orientation/consciousness: patient oriented x3 HEENT Other: Unremarkable Head: Yes normal to inspection Neck Neck: Yes normal visual inspection Chest Chest palpation & inspection: normal inspection of the chest Resp Auscultation: clear to auscultation bilaterally Cardio Palpation: normal PMI Heart sounds: S1 normal heart sound present, S2 normal heart sound present, no gallops, no murmurs and no rubs GI Palpation (GI): Soft to palpation Back/Spine/Pelvis Other: unremarkable Skin General skin exam: no rashes or lesions noted Neuro General: patient oriented x3 Extrem General: Yes normal to inspection Psych Mental Status: mental status grossly normal Assessment & Plan Assessment & Plan (1) Cardiomyopathy: Code(s): I42.9 - Cardiomyopathy, unspecified Category: Medical Plan: In the echocardiogram, LVEF is 47%. Normal diastolic function. No significant valvular findings. Coronary CTA shows no significant CAD. Overall, cardiomyopathy of unknown etiology. Her on does have some cardiomyopathy and hence genetic etiology is possible. We discussed about these in detail. We will plan on getting cardiac MRI and Genetics referral. We also discussed about medications. As the EF is only mildly reduced, no clear need for medications. Also she has listed EpiPen and it will be difficult to use beta-blockers with this. (2) PVC (premature ventricular contraction): Code(s): I49.3 - Ventricular premature depolarization Category: Medical Plan: Rare PVCs/PACs. Very low burden. Could be causing some palpitations but no specific treatment. Reassurance. Plan Discussion Notes I reviewed with the patient the diagnosis of mild cardiomyopathy and its implications. We discussed the importance of obtaining a cardiac MRI to evaluate myocardial structure for potential scar tissue or previous myocardial inflammation (myocarditis). The patient was educated on the purpose of the MRI, expected outcomes, and the logistical arrangements that ensure her wish for privacy from familial knowledge of her condition. Genetic testing was explained, focusing on its utility in understanding her inherited risk of cardiomyopathy, and potential repercussions concerning personal decisions. We reviewed the exercise benefits, which the patient is incorporating, and addressed her current shellfish allergy and asthma history. Follow-up plans include completing the MRI and continuing genetic inquiry with the genetics clinic. Patient was informed and verbally consented to the use of an ambient scribe for clinic note documentation during this visit. Orders: Orders MR cardiac morph fnct w/wo con Today I42.9 - Cardiomyopathy, unspecified Referrals Genetics Referral I42.8 - Other cardiomyopathies Patient Instructions: - Schedule and complete the cardiac MRI. - Continue engaging in regular physical exercise, such as walking. - Discuss with family members any relevant history of heart problems. - Follow up with the genetics clinic for inherited risk evaluation. - Be vigilant for symptoms such as worsening shortness of breath. - Seek medical attention if new symptoms arise or current symptoms worsen. Coding Level of Care Code Est Pt Level 4 (46643) Complex EM visit Add On G2211 Diagnoses Cardiomyopathy I42.9 PVC (premature ventricular contraction) I49.3
== END 2024-12-07 14:19 | disposition home or self-care (01) ==
LOC: HO.HCS 13:44
PROVIDERS: PCP Internal Medicine; Visit Provider Internal Medicine
DX: I42.9 Cardiomyopathy, unspecified (principal); I49.3 Ventricular premature depolarization
CPT/HCPCS: 99214; G2211

== ENCOUNTER → 2024-12-07 13:43 | Outpatient (BNVA) | payer OTHER, SELFPAY | PROVIDERS: PCP Internal Medicine; Visit Provider Internal Medicine | DX: I42.9 Cardiomyopathy, unspecified (principal); I49.3 Ventricular premature depolarization | CPT/HCPCS: 99212 ==

== ENCOUNTER 2025-02-14 14:53 | Outpatient (AMB) | payer OTHER, SELFPAY ==
--- NOTE | 2025-02-14 14:57 | MHC.PC.OV ---
Vital Signs 02/14/25 14:59 Height 5 ft 2 in Weight 167 lb 6 oz BMI 30.6 BP 130/84 Blood Pressure Location Lt brachial Position Sitting Pulse 87 Temp 97.4 F Temp Source Temporal Artery Scan Pulse Oximetry (%) 98 Oxygen Delivery Method Room Air Intake Visit Reasons: migraine, palpitations Lunchroom Mother Required: No Accompanied by: Self / Same As Patient Allergies Penicillins Allergy (Mild, Verified 02/14/25 15:18) HIVES vancomycin (Vancomycin) Allergy (Mild, Verified 02/14/25 15:18) ITCHING, severe itching penicillin G procaine Allergy (Unknown, Verified 02/14/25 15:18) itching, redness Shellfish Allergy (Mild, Uncoded 02/14/25 15:18) Anaphylaxis shellfish Allergy (Unknown, Uncoded 02/14/25 15:18) Anaphylaxis Medication List - Last Reconciled 02/14/25 by Ankur Fontaine MD albuterol sulfate 90 mcg/actuation (Ventolin HFA) 2 puffs inhalation Q6H PRN 30 days cholecalciferol (vitamin D3) 25 mcg PO DAILY coenzyme Q10 100 mg PO DAILY epinephrine 0.3 mg (0.3 mL) IM ONCE PRN gabapentin 100 mg PO BEDTIME 30 days L.acid,gas,bree,rham-B.ani-cran 5 billion cell- 250 mg (up4 Probiotics Women's) 1 cap PO DAILY multivitamin with minerals (Hair,Skin and Nails tablet) 1 tab PO DAILY omega 6-fbl-rtw-fish oil 300-1,000 mg (Fish Oil) 1 cap PO TID topiramate XR 100 mg PO BID 90 days Tobacco use date assessed: 02/14/25 Dental Screening Dental Screen Date: 02/14/25 Did you have a dental visit in the last 12 months?: Yes Did you have a dental problem in the last 6 months where you did not have access to dental care?: No Was dental information given to patient?: Patient has dentist HPI migraine, palpitations HPI Details Patient comes in today for her follow up visit States that she currently feels okay and that her migraine headaches mostly well controlled with her prophylactic Rx - topiramate States that her sumatriptan though does not really help her much when she takes it as needed for breakthrough headaches Patient adds that she has been experiencing frequent heartburn lately, especially at night and she has been taking some OTC Tums often lately just to get some relief Recalls that she was advised in the fact that she has a sliding hernia and she she recalls sometimes experiencing some problems swallowing when eating in the past - felt like the food gets stuck in her lower chest area for a while She also has a recurrent itchy rash on her left ring finger for the past few weeks - notes that this seems to be bothering her more often at nighttime and she has been taking her ring off at night lately for some relief She denies any dizziness Denies any chest pains, no shortness of breath; states that her previous palpitations have not been occurring as often lately No nausea/vomiting, no abdominal pain No change in bowel habits noted She would like to know how she did on her labs done back in October 2024 [facility] Medical History (Updated 02/14/25 @ 15:40 by Ankur Fontaine MD) GERD without esophagitis Mixed hyperlipidemia Fibromyalgia Obesity (BMI 30-39.9) Chiari I malformation Migraine Palpitations Surgical History Hx of bilateral breast reduction surgery Hx of tubal ligation History of endometrial ablation Family History Mother Graves disease Maternal Aunt Cardiomyopathy Other Congestive heart failure Diabetes Hypertension Stomach cancer Social History Housing: House Alcohol intake: current Alcohol intake frequency: holidays/special occasions only Patient Tobacco Use Status: Never used Tobacco e-Cigarette/Vaping Use: Never Used service: No Current occupational status: employed 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 1. Little interest or pleasure in doing things: not at all 2. Feeling down, depressed, or hopeless: not at all 3. Trouble falling or staying asleep, or sleeping too much: not at all 4. Feeling tired or having little energy: several days 5. Poor appetite or overeating: not at all 6. Feeling bad about yourself - or that you are a failure or have let yourself or your family down: not at all 7. Trouble concentrating on things, such as reading the newspaper or watching television: not at all 8. Moving or speaking so slowly that other people could have noticed. Or the opposite - being so fidgety or restless that you have been moving around a lot more than usual: not at all 9. Thoughts that you would be better off or of hurting yourself in some way: not at all Total score: 1 Depression Screening Interpretation: Negative Depression Screening Done: Yes 59201 - PHQ-9 Billing: Yes Source: Developed by Drs. Maico Angeles, Lesia Montero, Guanako Nova and colleagues, with an educational chelle from [employer]. Thrive Questionnaire Date Thrive assessed: 10/24/24 I am a: Patient What is your living situation today?: I have a steady place to live Within the past 12 months, did the food you bought not last and you didn't have the money to get more?: Never true Within the past 12 months, did you worry whether your food would run out before you got money to buy more?: Never true Do you have trouble paying for medicines?: No Do you have trouble getting transportation to medical appointments?: No Do you have trouble paying your heating and electricity bill?: No Do you have trouble taking care of your child, family member or friend?: No Do you have trouble with day-to-day activities such as bathing, preparing meals, shopping, managing finances, etc.?: No Are you currently unemployed and looking for a job?: No Are you interested in more education?: No Please select the resources that you would like help with: None Currently or been in a relationship where the following occur: No concerns reported THRIVE Score: 0 AUDIT C Alcohol Use Questionnaire (AUDIT-C) 1. How often do you have a drink containing alcohol?: 2-4 times a month 2. How many drinks containing alcohol do you have on a typical day when you are drinking?: 1 or 2 3. How often do you have six or more drinks on one occasion?: Never Total Score: 2 Score Reviewed/Action Taken: Yes MAYRA-7 AMB Questionnaire MAYRA-7 Date MAYRA - 7 assessed: 10/31/24 Feeling nervous, anxious, or on edge: 0 = Not at all Not being able to stop or control worryin = Not at all Worrying too much about different things: 0 = Not at all Trouble relaxin = Not at all Being so restless that it is hard to sit still: 0 = Not at all Becoming easily annoyed or irritable: 0 = Not at all Feeling afraid as if something awful might happen: 0 = Not at all Total MAYRA-7 score (0-4 normal; 5-9 mild; 10-14 moderate; 15-21 severe): 0 Source: Developed by Drs. Maico Angeles, Lesia Montero, Guanako Nova and colleagues, with an educational chelle from [employer]. Review of Systems Const Reports body aches (diffuse), Denies chills, Reports fatigue, Denies fever(s) and Reports headache(s) (better controlled lately) ENT Reports dysphagia (occasionally - see HPI), Denies dizziness, Denies otalgia, Reports headache(s) (better controlled lately), Denies neck pain, Denies odynophagia and Denies sore throat Card Denies chest pain, Denies irregular heart rhythm (but reports experiencing palpitations/tachycardia at times), Reports palpitations (occasionally) and Denies dyspnea Resp Denies chest congestion, Denies cough and Denies dyspnea GI Denies abdominal pain, Denies constipation, Reports dysphagia (occasionally - see HPI), Reports heartburn (increasing lately, most often at night), Denies diarrhea, Denies nausea, Denies odynophagia and Denies vomiting Denies difficulty voiding, Denies nocturia, Denies dysuria and Denies urinary urgency Musc Denies back pain, Reports myalgias (diffuse), Reports arthralgias (involving multiple joints, including her wrists and elbows) and Denies neck pain Skin/Breast Denies rash Neuro Reports burning sensations (in both feet, recurrent, often at night), Denies dizziness and Reports headache(s) (better controlled lately) Endo Reports fatigue and Reports palpitations (occasionally) Physical exam (Primary Care) Vital Signs: Last Vital Signs Temp 97.4 F 02/14/25 14:59 Pulse 87 02/14/25 14:59 BP 130/84 02/14/25 14:59 Pulse Ox 98 02/14/25 14:59 Oxygen Delivery Method Room Air 02/14/25 14:59 BMI result Body Mass Index 30.6 Tobacco/Smoking Status: Tobacco use Status Tobacco use date assessed 02/14/25 02/14/25 15:03 Patient Tobacco Use Status Never used Tobacco 02/14/25 15:03 Tobacco use type 09/26/24 11:25 e-Cigarette/Vaping Use Never Used 02/14/25 15:03 PHQ-9: PHQ-9 Score PHQ-9: Total score 1 02/20/25 04:02 Depression Screening Interpretation: Negative Thrive Assessment: Date of Thrive Assessment Date Thrive assessed 10/24/24 02/14/25 15:03 Currently or been in a relationship where the following occur: No concerns reported Const General: no acute distress and alert HENMT Throat: Yes posterior oropharynx normal and Yes tonsils normal (no TP congestion) Neck Neck: Yes supple and No lymphadenopathy Thyroid: Thyroid normal Resp Auscultation: clear to auscultation bilaterally, no rales and no wheezes Cardio Rate: regular rate Rhythm: abnormal rhythm with ectopic beats Heart sounds: no murmurs GI Palpation (GI): Soft to palpation and nontender Auscultation: normal bowel sounds General: Yes no CVA tenderness Back/Spine/Pelvis Back: no CVA tenderness Thoracic/Lumbar Spine: No lumbar spinal tenderness Skin Rashes: no rashes Extrem General: Yes no clubbing, cyanosis or edema Results Reviewed Results Reviewed: Laboratory Tests 11/11/24 11/11/24 13:44 15:50 WBC 8.4 Hgb 14.3 Hct 41.4 Plt Count 273 ESR 10 Sodium 141 Potassium 3.4 Creatinine 0.88 Estimated GFR > 60 Fasting Glucose 94 Calcium 8.8 AST 21 ALT 19 Triglycerides 231 H Cholesterol 253 H LDL Cholesterol, Calc 162 H HDL Cholesterol 45 Vitamin B12 338 25-OH Vitamin D Total 78.4 TSH 1.50 Ur Specific [place] 1.010 Urine Protein Negative Urine Glucose (UA) Negative Urine Blood Negative Urine Nitrite Negative Ur Leukocyte Esterase Trace H Coding Level of Care Code Est Pt Level 4 (59655) Diagnoses Palpitations R00.2 Mixed hyperlipidemia E78.2 Fibromyalgia M79.7 Chronic nonintractable headache, unspecified headache type R51.9; G89.29 Headache type: unspecified Intractability: not intractable Chiari I malformation G93.5 Neuropathy G62.9 Obesity (BMI 30-39.9) E66.9 Additional Codes PHQ-9 - 98920 - PHQ-9 Billing: Yes ([id number]) Assessment & Plan Assessment & Plan (1) Palpitations: Code(s): R00.2 - Palpitations Category: Medical Plan: 12 lead EKG done at [facility] back in July 2023 revealed NSR with non-specific T-wave abnormality As patient continues to experience her recurrent symptoms of palpitations/skipped beats over the past several months, she was referred to cardiology for further evaluation and management She was just seen by Cardiology last month and sent for echocardiogram and Holter monitoring for several evaluation Echocardiogram revealed global hypokinesia with mildly decreased left ventricular systolic function - EF is at 47%. No obvious valvular pathology is seen and diastolic function is normal for her age Holter monitor revealed baseline rhythm is sinus, with average heart of 84 beats per minute. Rare PACs and PVCs noted without significant pauses. No patient reported events She is now awaiting scheduling for cardiac MRI for further evaluation and she has also been referred by Cardiology for genetic evaluation to see if she has any inherited risks Follow up with cardiology as scheduled (2) Mixed hyperlipidemia: Code(s): E78.2 - Mixed hyperlipidemia Category: Medical Plan: Results of her labs done back in October 2024 reviewed and discussed with patient Her cholesterol levels are mostly similar to what her numbers were last year - her total cholesterol 253, TG 231, HDL 45 and LDL 162 mg/dl Reinforced low cholesterol diet Patient is advised that if she can not get her numbers improved significantly over the next few months, we may need to consider starting her on cholesterol-lowering medications - she recalls being on simvastatin in the past but is unclear at this time why she stopped taking it Will have patient recheck her labs and fasting lipids in 4 months for follow-up (3) Fibromyalgia: Code(s): M79.7 - Fibromyalgia Category: Medical Plan: She was seen by rheumatology a few months ago and was advised that most of her arthralgia and myalgias are due to fibromyalgia She was reassured that she does not appear to have any findings consistent with any inflammatory joint disease She is encouraged to continue to try to stay active and exercise regularly to help manage her fibromyalgia symptoms (4) Chronic headaches: Code(s): R51.9 - Headache, unspecified; G89.29 - Other chronic pain Category: Medical Qualifiers: Headache type: unspecified Intractability: not intractable Qualified Code(s): R51.9 - Headache, unspecified; G89.29 - Other chronic pain Plan: These are likely related to her Chiari I malformation but patient also has (+) Hx of migraine headaches Continue Topiramate XR 100 mg BID for headache prophylaxis, which patient feels is helping Will try starting her on Ubrelvy 50 mg PRN for symptomatic relief of breakthrough headaches since she finds that sumatriptan does not really help much She was seeing Dr. Denise Lancaster at [facility] for follow up of her headaches but was informed that Dr. Lancaster is leaving the practice for [place] and she will be seeing another neurologist in the same practice at her next appointment She would like to see if she can be switched over to neurology here at [facility] instead so she can get all of her medical care consolidated in one place - referral to [facility] Neurology done (5) Chiari I malformation: Code(s): G93.5 - Compression of brain Category: Medical Plan: Follow up with neurology as scheduled (6) Neuropathy: Code(s): G62.9 - Polyneuropathy, unspecified Category: Medical Plan: Involving both feet/lower extremities Patient was sent for EMG and NCV of both lower extremities for further evaluation - she had these done back in May 2024 and both tests came back normal. There were no electrodiagnostic evidence for peroneal neuropathy, tibial neuropathy, lumbosacral plexopathy, lumbar radiculopathy, or peripheral neuropathy Continue Gabapentin 100 mg Q HS (7) Obesity (BMI 30-39.9): Code(s): E66.9 - Obesity, unspecified Category: Medical Plan: Reinforced diet/exercise as tolerated/lose weight Plan Follow up in 3 months Orders: Orders Complete Blood Count Auto Diff 4 Months D64.9 - Anemia, unspecified Comprehensive [place]. Panel Fast 4 Months E78.00 - Pure hypercholesterolemia, unspecified Lipid Panel 4 Months E78.00 - Pure hypercholesterolemia, unspecified Referrals Neurology Referral G43.909 - Migraine, unspecified, not intractable, without status migrainosus, G93.5 - Compression of brain Medications: New ubrogepant (Ubrelvy) Take NEEDED for migraine headaches. May take a second dose after 2 hours if needed but no more than 2 tablets in 24 hours 50 mg PO ONCE PRN 30 tabs 3RF migraine headache 30 days pantoprazole 40 mg PO DAILY 90 tabs 1RF 90 days K21.9 - Gastro-esophageal reflux disease without esophagitis
[2025-02-14 14:59] VITALS: BP 130/84; PULSE 87; TEMP 36.3; O2SAT 98; BMI 30.6
--- OUTSIDE RECORDS SUMMARY | 2025-02-14 15:47 | XMS_ITS | Clinical Summary ---
Author Organization [facility] Address [address] [place] [address] Care Team Providers Care Breakdown Person Name Role Phone Pcp, No MD Primary Care Provider Unavailabl e Social History Tobacco Use Types Packs/Day Years Used Date Smoking Tobacco: Never Assessed Comments Unknown Sex and Gender Information Value Date Recorded Sex Assigned at Not on file Legal Sex Female 8:26 AM EDT Gender Identity Not on file Sexual Orientation Not on file Plan of Treatment Upcoming Encounters Date Type Department Care Team (Late st Contact Info) Description 02/15/2025 8:00 AM EDT Office Visit [facility] Department of Cardiology [address] [place] [address] Faizan Harrison MD [address] [place] [address] [address] Insurance [facility] Care Teams Breakdown Person Relationship Specialty Start Date End Date PcpNeela MD [address] [phone] PCP - General Internal Medicine 02/08/25
== END 2025-02-14 15:44 | disposition home or self-care (01) ==
LOC: HO.HMCH 14:54
PROVIDERS: PCP Internal Medicine; Visit Provider Internal Medicine
DX: R00.2 Palpitations (principal); G93.5 Compression of brain; Z68.30 Body mass index [BMI] 30.0-30.9, adult; E66.9 Obesity, unspecified; E78.2 Mixed hyperlipidemia; M79.7 Fibromyalgia; R51.9 Headache, unspecified; G89.29 Other chronic pain; G62.9 Polyneuropathy, unspecified

== ENCOUNTER → 2025-02-14 14:53 | Outpatient (BNVA) | payer OTHER, SELFPAY | PROVIDERS: PCP Internal Medicine; Visit Provider Internal Medicine | DX: R00.2 Palpitations (principal); E78.2 Mixed hyperlipidemia; M79.7 Fibromyalgia; R51.9 Headache, unspecified; G89.29 Other chronic pain; G93.5 Compression of brain; G62.9 Polyneuropathy, unspecified; E66.9 Obesity, unspecified; Z68.30 Body mass index [BMI] 30.0-30.9, adult; Z71.3 Dietary counseling and surveillance | CPT/HCPCS: 96127; 99212 ==

== ENCOUNTER 2025-03-09 14:06 | Outpatient (AMB) | payer OTHER, SELFPAY ==
[2025-03-09 14:09] VITALS: BP 120/72; PULSE 83; BMI 29.8
--- NOTE | 2025-03-09 14:09 | A.OFFVIS_ITS ---
Vital Signs 03/09/25 14:09 Height 5 ft 2 in Weight 163 lb 2.273 oz BMI 29.8 BP 120/72 Blood Pressure Location Lt brachial Position Sitting Pulse 83 Pulse Source Pulse Oximeter Intake Visit Reasons: 3 mth f/up cardiac MRI Allergies Penicillins Allergy (Mild, Verified 02/14/25 15:18) HIVES vancomycin (Vancomycin) Allergy (Mild, Verified 02/14/25 15:18) ITCHING, severe itching penicillin G procaine Allergy (Unknown, Verified 02/14/25 15:18) itching, redness Shellfish Allergy (Mild, Uncoded 02/14/25 15:18) Anaphylaxis shellfish Allergy (Unknown, Uncoded 02/14/25 15:18) Anaphylaxis Medication List - Last Reconciled 03/09/25 by Andre Patrick MD albuterol sulfate 90 mcg/actuation (Ventolin HFA) 2 puffs inhalation Q6H PRN 30 days cholecalciferol (vitamin D3) 25 mcg PO DAILY epinephrine 0.3 mg (0.3 mL) IM ONCE PRN gabapentin 100 mg PO BEDTIME PRN L.acid,gas,bree,rham-B.ani-cran 5 billion cell- 250 mg (up4 Probiotics Women's) 1 cap PO DAILY multivitamin with minerals (Hair,Skin and Nails tablet) 1 tab PO DAILY pantoprazole 40 mg PO DAILY 90 days topiramate XR 100 mg PO BID 90 days ubrogepant (Ubrelvy) 50 mg PO ONCE PRN 30 days HPI Comments Details: Dalia returns for follow-up regarding palpitations and shortness of breath. She states that after the of her daughter almost 16 years ago she has been noticing some palpitations. These are intermittent and can happen any time. No specific provoking factors. She feels brief sensations of heart fluttering and a sensation in the throat. Suggestive of ectopy. Does not appear like sustained arrhythmias. She also feels some shortness of breath at different times. Could be during rest as well. She feels as though she needs takes some deep breaths. No clear-cut angina. No previous cardiac history otherwise. Maternal aunt carries a diagnosis of cardiomyopathy. She has completed an echocardiogram, coronary CTA, cardiac MRI and Holter. [facility] Medical History (Updated 02/14/25 @ 15:40 by Ankur Fontaine MD) GERD without esophagitis Mixed hyperlipidemia Fibromyalgia Obesity (BMI 30-39.9) Chiari I malformation Migraine Palpitations Surgical History Hx of bilateral breast reduction surgery Hx of tubal ligation History of endometrial ablation Family History Mother Graves disease Maternal Aunt Cardiomyopathy Other Congestive heart failure Diabetes Hypertension Stomach cancer Social History Housing: House Alcohol intake: current Alcohol intake frequency: holidays/special occasions only Patient Tobacco Use Status: Never used Tobacco e-Cigarette/Vaping Use: Never Used service: No Current occupational status: employed 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 Cognitive needs: No Hearing needs: No Vision needs: Yes (Glasses) Female Reproductive History Menstrual Age of Menarche: 13 Review of Systems Const Denies weakness ENT Denies dizziness Card Denies chest pain, Denies chest pain with activity, Denies syncope, Denies rapid heart rate, Denies pedal edema, Denies edema, Denies leg edema, Denies lightheadedness, Denies palpitations, Denies dyspnea, Denies dyspnea on exertion and Denies orthopnea Resp Denies cough, Denies dyspnea and Denies dyspnea on exertion GI Denies hematochezia and Denies change in stool character Musc Denies abnormal gait, Denies muscle cramps, Denies muscle weakness, Denies numbness, Denies radiating pain into limb and Denies tingling Neuro Denies abnormal gait, Denies dizziness, Denies syncope, Denies numbness, Denies tingling and Denies weakness Endo Denies palpitations Physical Exam Vital Signs: Last Vital Signs Pulse 83 03/09/25 14:09 BP 120/72 03/09/25 14:09 BMI result Body Mass Index 29.8 Const General: comfortable and no acute distress Orientation/consciousness: patient oriented x3 HEENT Other: Unremarkable Head: Yes normal to inspection Neck Neck: Yes normal visual inspection Chest Chest palpation & inspection: normal inspection of the chest Resp Auscultation: clear to auscultation bilaterally Cardio Palpation: normal PMI Heart sounds: S1 normal heart sound present, S2 normal heart sound present, no gallops, no murmurs and no rubs GI Palpation (GI): Soft to palpation Back/Spine/Pelvis Other: unremarkable Skin General skin exam: no rashes or lesions noted Neuro General: patient oriented x3 Extrem General: Yes normal to inspection Psych Mental Status: mental status grossly normal Assessment & Plan Assessment & Plan (1) Cardiomyopathy: Code(s): I42.9 - Cardiomyopathy, unspecified Category: Medical Plan: In the echocardiogram, LVEF is 47%. Normal diastolic function. No significant valvular findings. Coronary CTA shows no significant CAD. In the cardiac MRI, thought to be low normal LVEF at 55%. No evidence of abnormal delayed enhancement. Essentially, mildly decreased LVEF on echocardiogram and reported to be low normal on MRI. Because of family history of cardiomyopathy in on, she has also been seen by cytotechnologist/histotechnologist. Labs have been drawn and results pending. With regard to any medications, as the LVEF is in the low normal/mildly diminished range, we can hold off on any medications. With regard to beta-blockers, I am not clear if she will be able to take it as she is also on EpiPen. 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 We discussed these today in detail. Advised her to forward us the lab results from genetics panel. (2) PVC (premature ventricular contraction): Code(s): I49.3 - Ventricular premature depolarization Category: Medical Plan: Rare PVCs/PACs. Very low burden. Could be causing some palpitations but no specific treatment. Reassurance. Plan Discussion Notes During the consultation, we discussed the patient's borderline low heart function and the potential genetic implications due to her family history of cardiomyopathy. We reviewed the MRI results, which showed heart function at the lower end of normal, and considered the use of beta blockers, although concerns were raised due to her shellfish allergy and EpiPen use. The patient was advised to continue monitoring her condition with regular follow-ups and genetic testing. Patient was informed and verbally consented to the use of an ambient scribe for clinic note documentation during this visit. Total time spent including review of data, counseling, documentation, coordination of care-32 minutes. Orders: Orders CA echo transthoracic complete 1 Year Andre Patrick MD I42.9 - Cardiomyopathy, unspecified Medications: Changed From gabapentin 100 mg PO BEDTIME 30 days 30 caps 3RF To gabapentin 100 mg PO BEDTIME PRN Ankur Fontaine MD Coding Level of Care Code Est Pt Level 4 (96826) Complex EM visit Add On G2211 Diagnoses Cardiomyopathy I42.9 PVC (premature ventricular contraction) I49.3
--- OUTSIDE RECORDS SUMMARY | 2025-03-09 16:04 | XMS_ITS ---
Author Name [facility] Organization Unknown History of Medication Use Medication Directions Dispensed Refills Start Date End Date Stat us pantoprazole (PROTONIX) 40 mg EC tablet 02/14/2025 active gabapentin (NEURONTIN) 100 mg capsule Take 100 mg by mouth nightly. 12/03/2024 active albuterol HFA 90 mcg/actuation inhaler INHALE 2 PUFFS INTO THE LUNGS EVERY 6 HOURS NEEDED FOR SHORTNESS OF BREATH / WHEEZING 10/31/2024 active EPINEPHrine (EpiPen) 0.3 mg/0.3 mL injection active Topamax 100 mg tablet ac tive Allergies Allergen Reaction Severity Comment Documented Date Source Statu s PENICILLINS RASH 02/15/2025 [facility] active SHELLFISH CONTAINING PRODUCTS SWELLING Other Reaction(s): Anaphylactic shock due to serum, itching 02/15/2025 [facility] active VANCOMYCIN RASH 02/15/2025 [facility] active Problems Problem Status Onset Date Problem Type Date of Resoluti on Source Cardiomyopathy, unspecified type (HCC) active EncounterDiagnosisAct [facility] Encounters Encounter Type Encounter Reason Primary Diagnosis Location Date Ambulatory Cardiomyopathy, unspecified Cardiomyopathy, unspecified Formerly [facility] 02/15/2025 Ambulatory Cardiomyopathy, unspecified Cardiomyopathy, unspecified [facility]ly [facility] 02/15/2025 Care Team Organization Name Specialty Phone Email Start Date End Da te Formerly [facility] Primary [facility] 02/15
--- OUTSIDE RECORDS SUMMARY | 2025-03-09 16:04 | XMS_ITS | Clinical Summary ---
Author Organization [facility] Address [address] [place] [address] Care Team Providers Care Insurance Loss Adjuster Name Role Phone ZhenAnkur quinn La [place] Primary Care Provider Faizan Harrison MD Unavailable [phone] Allergies Active Allergy Reactions Criticality Noted Date Comments Penicillins Rash Low 02/15/2025 Shellfish Containing Products Swelling 02/15/2025 Other Reaction(s): Anaphylactic shock due to serum, itching Vancomycin Itching,Rash Low 02/15/2025 Medications albuterol HFA 90 mcg/actuation inhaler INHALE 2 PUFFS INTO THE LUNGS EVERY 6 HOURS NEEDED FOR SHORTNESS OF BREATH / WHEEZING 5 Active EPINEPHrine (EpiPen) 0.3 mg/0.3 mL injection Active gabapentin (NEURONTIN) 100 mg capsule Take 100 mg by mouth nightly. 5 Active pantoprazole (PROTONIX) 40 mg EC tablet 5 Active Topamax 100 mg tablet Active Encounters Date Type Department Care Team Description 02/15/2025 8:00 AM EDT Office Visit [facility] Department of Cardiology [address] [place] [address] Faizan Harrison MD Cardiomyopathy, unspecified type (HCC) (Primary Dx) from Last 3 Months Family History Medical History Relation Comments Aneurysm Father's Father brain Graves' disease Mother Heart attack Mother's Brother 1 Heart attack Mother's Brother 2 Heart attack Mother's Sister 1 first [place] under 50 Cardiomyopathy Mother's Sister 2 sx related to Heart failure Paternal Grandmother Relation Status Comments Brother 1 Alive high blood press ure Brother 2 (Age 9d) born premature ly 6m , anuerysm 2 yrs older Daughter Alive Father Alive Father's Brother 1 unk/EtoH Father's Brother 2 Alive Father's Brother 3 Alive Father's Brother 4 Alive Father's Brother 5 Alive Father's Father (Age 45) Father's Sister Alive Maternal Cousin Alive Maternal Grandfather brain tumor Maternal Grandmother brain tumor Mother Alive no cardiac lashaun p yet - possibly Mother's Brother 1 Alive Mother's Brother 2 Mother's Brother 3 cardiovascula r disease Mother's Brother 4 liver transpl ant Mother's Brother 5 self-inflicte d Mother's Sister 1 Alive multipe co-mor bidities Mother's Sister 2 Alive <66y Mother's Sister 3 Alive Mother's Sister 4 Alive Paternal Cousin Alive adopted by pt dianne deal Paternal Grandmother (Age 73) Sister , SB, sev ere cleft lip and palate Social History Tobacco Use Types Packs/Day Years Used Date Smoking Tobacco: Never Smokeless Tobacco: Never Tobacco Cessation:Counseling Given: Not Answered Alcohol Use Standard Drinks/Week Comments Yes 0 (1 standard drink = 0.6 oz pur e alcohol) Socially only Comments Unknown Sex and Gender Information Value Date Recorded Sex Assigned at Not on file Legal Sex Female 8:26 AM EDT Gender Identity Not on file Sexual Orientation Not on file COVID-19 Exposure Response Date Recorded In the last 10 days, have yo u been in contact with someone who was confirmed or suspected to have Coronavirus/COVID-19? No / Unsure 02/15/2025 7:29 AM EDT Last Filed Vital Signs Vital Sign Reading Time Taken Comments Blood Pressure 122/90 02/15/2025 7:49 AM EDT Pulse 82 02/15/2025 7:49 AM EDT Temperature - - Respiratory Rate 17 02/15/2025 7:49 AM EDT Oxygen Saturation 100% 02/15/2025 7:49 AM EDT Inhaled Oxygen Concentration - - Weight 76.3 kg (168 lb 3.2 oz) 02/15/2025 7:49 A M EDT Height 157.5 cm (5' 2 ) 02/15/2025 7:49 AM EDT Body Mass Index 30.76 02/15/2025 7:49 AM EDT Plan of Treatment Upcoming Encounters Date Type Department Care Team (Late st Contact Info) Description 03/15/2025 11:00 AM EDT Scheduled Telephone Visit [facility] Department of Cardiology [address] [place] [address] Faizan Harrison MD [address] [facility] [place] [address] Health Maintenance Due Date Last Done Comments Breast Cancer Screening 1980 HIV Screening 1980 Hepatitis C Screening 1998 Hepatitis B Vaccines (1 of 3 - 19+ 3-dose series) 09/26/1999 Pneumococcal Vaccine: Pediatrics (0 to 5 Years) and At-Risk Patients (6 to 49 Years) (1 of 2 - PCV) 09/26/1999 Pap Smear 2001 HPV Vaccines (1 - 3-dose SCD M series) 09/26/2007 Cervical Cancer Screening 2010 HPV/Cotest 2010 COVID-19 Vaccine (1 - 2023-2 5 season) 2025 Influenza Vaccine (#1) 2025 , 05/12/2018 DTaP,Tdap,and Td Vaccines (3 - Td or Tdap) 08/07/2029 08/07/2019, 06/19/2015 Zoster Vaccines (1 of 2) 2030 Hepatitis A Vaccines Aged Out No long er eligible based on patient's age to complete this topic MMR Vaccines Aged Out No longer eligi ble based on patient's age to complete this topic Meningococcal Vaccine Aged Out No hetal monie eligible based on patient's age to complete this topic Procedures Procedure Name Priority Date/Time Associated Diagnosis Comments GENETIC STUDY KIT TEST Routine 02/15/2025 8:59 AM EDT Cardiomyopathy, unspecified type (HCC) ECG 12-LEAD Routine 02/15/2025 7:58 AM EDT Cardiomyopathy, unspecified type (HCC) from Last 3 Months Results * Genetic Study Kit Test (02/15/2025 8:59 AM EDT) Blood Venous blood specimen / Unknown Venipuncture / Unknown 02/15/2025 8:59 AM EDT 02/15/2025 8:59 AM EDT us Faizan Harrison MD LAB BLOOD ORDERABLES NO STAT Fi nal Result Performing Organization Address City/[facility]/ZIP Co de Phone Number [facility] [address] [place] [address], * ECG/EKG 12-lead (02/15/2025 7:58 AM EDT) 02/15/2025 7:58 AM EDT 02/15/2025 8:59 AM EDT Narrative [facility] - 02/15/2025 8:59 AM EDT Ventricular Rate: 74 BPM Atrial Rate: 74 BPM P-R Interval: 152 ms QRS Duration: 78 ms Q-T Interval: 402 ms QTC Calculation(Bazett): 446 ms P Sturgeon: 76 degrees R Sturgeon: 63 degrees T Sturgeon: 74 degrees Diagnosis: Normal sinus rhythm Normal ECG No previous ECGs available Confirmed by Mello Ch ([id number]) on 02/15/2025 8:40:49 AM Also confirmed by Mello Ch ([id number]), editorial manager Devan Durbin ([id number]) on 02/15/2025 8:59:54 AM Procedure Note Mello Ch MD - 02/15/2025 Ventricular Rate: 74 BPM Atrial Rate: 74 BPM P-R Interval: 152 ms QRS Duration: 78 ms Q-T Interval: 402 ms QTC Calculation(Bazett): 446 ms P Sturgeon: 76 degrees R Sturgeon: 63 degrees T Sturgeon: 74 degrees Diagnosis: Normal sinus rhythm Normal ECG No previous ECGs available Confirmed by Mello Ch ([id number]) on 02/15/2025 8:40:49 AM Also confirmed by Mello Ch ([id number]), editorial manager Devan Durbin ([id number]) on 02/15/2025 8:59:54 AM us Faizan Harrison MD ECG ORDERABLES Final Result [facility] ([facility]USE) [place] [address], from Last 3 Months Insurance [facility] Care Teams Insurance Loss Adjuster Relationship Specialty Start Date End Date Ankur Fontaine [address] [place] [id number] PCP - General Family Medicine 02/15/25 Faizan Harrison MD [address] [place] [address] [address] Consulting Physician Cardiology 02/15/25
== END 2025-03-09 14:32 | disposition home or self-care (01) ==
LOC: HO.HCS 14:07
PROVIDERS: PCP Internal Medicine; Visit Provider Internal Medicine
DX: I42.9 Cardiomyopathy, unspecified (principal); I49.3 Ventricular premature depolarization
CPT/HCPCS: 99214; G2211

== ENCOUNTER → 2025-03-09 14:06 | Outpatient (BNVA) | payer OTHER, SELFPAY | PROVIDERS: PCP Internal Medicine; Visit Provider Internal Medicine | DX: I49.3 Ventricular premature depolarization (principal); I42.9 Cardiomyopathy, unspecified | CPT/HCPCS: 99212 ==

== ENCOUNTER 2025-05-02 14:45 | Outpatient (AMB) | payer OTHER, SELFPAY ==
--- NOTE | 2025-05-02 14:48 | A.OFFVIS_ITS ---
Vital Signs 05/02/25 15:06 Height 5 ft 2 in Weight 160 lb BMI 29.3 BP 120/84 Blood Pressure Location Lt brachial Position Sitting Pulse 100 Pulse Source Pulse Oximeter Pulse Oximetry (%) 99 Oxygen Delivery Method Room Air Intake Visit Reasons: INP-Compression of brain, Migraine Dye Jig Operator Required: No Accompanied by: Self / Same As Patient Allergies Penicillins Allergy (Mild, Verified 05/02/25 15:09) HIVES vancomycin (Vancomycin) Allergy (Mild, Verified 05/02/25 15:09) ITCHING, severe itching penicillin G procaine Allergy (Unknown, Verified 05/02/25 15:09) itching, redness Shellfish Allergy (Mild, Uncoded 05/02/25 15:09) Anaphylaxis shellfish Allergy (Unknown, Uncoded 05/02/25 15:09) Anaphylaxis Medication List - Last Reconciled 05/02/25 by SHARON Szymanski albuterol sulfate 90 mcg/actuation (Ventolin HFA) 2 puffs inhalation Q6H PRN 30 days cholecalciferol (vitamin D3) 25 mcg PO DAILY epinephrine 0.3 mg (0.3 mL) IM ONCE PRN gabapentin 100 mg PO BEDTIME PRN L.acid,gas,bree,rham-B.ani-cran 5 billion cell- 250 mg (up4 Probiotics Women's) 1 cap PO DAILY multivitamin with minerals (Hair,Skin and Nails tablet) 1 tab PO DAILY pantoprazole 40 mg PO DAILY 90 days topiramate 100 mg PO BID 90 days ubrogepant (Ubrelvy) 50 mg PO ONCE PRN 30 days HPI Comments Details: Right-handed 44-yr-old female presents to establish neurologic care for further management of migraine in the setting of known Chiari 1 malformation. 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 She reports that on her current acute and preventative migraine regimen, she is doing okay, but feels that her migraine burden could be a bit better controlled. She was previously seen by [facility] Neurology, until her previous neurology SILK CONDITIONER left the practice. In regards to the known Chiari 1 malformation, she previously had a [facility] neurosurgery consult, who did not feel that she was a surgical candidate. PMH and ROS are notable for:? Motion sickness- onset in childhood Palpitations a/w SOB, anxious feeling r/t cardiomyopathy History of choking sensation on food and fluids, in setting of hiatal hernia in a normal MBS- symptoms have improved improved since starting PPI. Constipation Occasional leg cramps, left toe spasms Occasional R > L mid-lower back pain triggered by twisting her torso. Always thirsty Generalized twitching body movements BLE tingling and feet feel hot Pertinent denials include: Radicular neck pain, kidney stones, glaucoma, h/o head injury/concussion. Lifestyle considerations * Typical nutrition intake: eats a healthy clean diet * Typical fluid intake per day: 2-3 large Yeti water bottles, with liquid IV, electrolyte bragg * Caffeine use: 1 cup of coffee per day, usually in the morning. * Sleep routine: Usual bedtime: 9:30 pm and wake-up time: 6:15am * Sleep: Endorses: light snoring at sleep onset, occasional leg cramps, and bruxism- has a mouth guard. Notes that she has been sleeping better, since sleeping with a new pillow that provides more cervical support. 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 * Age/time of onset: childhood * Preceding causes: none * Previous work-up: * 12/02/2023, MRA/MRV Head W/O Contrast at [facility]: ?Normal MRA of the head? * 01/31/2021, [facility], MRI head without contrast: Chiari I malformation. * Family history of migraine or other headache disorder: maternal grandmother, aunts, daughters * Previous neurological care: * [facility] * Eye provider: has annual exams, and has an appt w/ a new provider coming up at [facility] Typical headache characteristics * Prodrome symptoms: none * Aura: sometimes may see flashing lights out of the corner of either one or bilateral eyes, sees black floaters * Pain intensity: [id number] * Location, quality, characteristics: throbbing pressure usually left side occipital region, or retro-bulbar pain, into the neck and shoulders. Also occasionally has left temporal stabbing pains. * Associated symptoms: photophobia, phonophobia, osmophobia, allodynia, when severe nausea, lightheadedness, fatigue, cognitive difficulties, activity intolerance, * Atypical associated symptoms: right eye watery, bilateral nasal congestion, feels like she is slurring her words (during the headache or sometimes at the onset of HURLEY), bilateral cheek pins and needles sensation, * Postdrome: 1-2 days of feeling rundown * Aggravating factors during this headache: standing up and bending over * Alleviating factors: sometimes as the headache is resolving, passing a bowel movement results in headache * Triggers that provoke this headache: none * Time of day this headache usually occurs: No specific time of day, but can wake-up at night with a migraine * Duration and Frequency: 1-2 mild headaches per week lasting a few hours, but can become a full migraine. a severe migraine , occurs 2-3 a month, lasting 2- 3 days * Headache impact on the patient's quality of life: severe Current treatment strategies * Current acute medication use/interventions: Ubrelvy 50mg, effectiveness is variable, especially if wakes up with a migraine with nausea * Current preventative medication use: topiramate 50mg 100mg BID, supplements including vitamin Bs and Mag * Current non-pharmacological interventions: rest, ice cap, heat [facility] Medical History (Updated 05/02/25 @ 19:33 by SHARON Szymanski) Low vitamin B12 level GERD without esophagitis Mixed hyperlipidemia Fibromyalgia Obesity (BMI 30-39.9) Chiari I malformation Migraine Palpitations Surgical History Hx of bilateral breast reduction surgery Hx of tubal ligation History of endometrial ablation Family History Mother Graves disease Maternal Aunt Cardiomyopathy Other Congestive heart failure Diabetes Hypertension Stomach cancer Social History Housing: House Alcohol intake: current Alcohol intake frequency: holidays/special occasions only Patient Tobacco Use Status: Never used Tobacco e-Cigarette/Vaping Use: Never Used service: No Current occupational status: employed 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 Cognitive needs: No Hearing needs: No Vision needs: Yes (Glasses) Female Reproductive History Menstrual Age of Menarche: 13 Physical Exam Vital Signs: Last Vital Signs Pulse 100 05/02/25 15:06 BP 120/84 05/02/25 15:06 Pulse Ox 99 05/02/25 15:06 Oxygen Delivery Method Room Air 05/02/25 15:06 BMI result Body Mass Index 29.3 Const Orientation/consciousness: patient oriented x3 Resp Effort & Inspection: normal respiratory effort and able to speak in complete sentences Neuro Other: No palpable scalp tenderness No significant cervical ROM restriction Negative bilateral Spurling General: patient oriented x3 Cranial nerves: Yes CN's II-XII intact bilaterally Cognition (Neuro): normal cognition Gait exam (Neuro): Normal gait present Motor exam (neuro): 5/5 motor strength present throughout Deep tendon reflexes (DTR's): Right triceps reflex intensity grade: 2+, Left triceps reflex intensity grade: 2+, Rt Biceps (C5, C6): 2+, Left biceps reflex intensity grade: 2+, Right brachioradialis reflex intensity grade: 2+, Left brachioradialis reflex intensity grade: 2+, Right patellar reflex intensity grade: 2+ and Left patellar reflex intensity grade: 2+ Coordination: [id number]-[id number] test normal, tandem gait normal and Romberg test negative Pupils: Normal pupillary reactivity/response: bilateral Psych Appearance: grossly normal Mental Status: mental status grossly normal Speech and movement: Normal speech and movement present Affect: normal affect Attitude: cooperative Thought process: Normal thought process present Assessment & Plan Assessment & Plan (1) Migraine with aura, not intractable, without status migrainosus: Code(s): G43.109 - Migraine with aura, not intractable, without status migrainosus Category: Medical Plan Discussion note We discussed her long history of migraine with aura, in the setting of known Chiari 1 malformation and recent formal diagnosis of cardiomyopathy. Concur with the patient that it would be reasonable to optimize her acute and preventive migraine regimen; specific recommendations are outlined below. Discussed undergoing further evaluation, such as a sleep study, as she may wake up with a headache; however, she would like to hold this for now, as she currently denies any bothersome sleep symptoms. Additionally, she agrees to undergo lab workup, in addition to the labs ordered by her PCP, to round out workup for intermittent paresthesias occurring with and without her migraine attacks, leg cramps. You are advised to undergo the following: Fasting lab workup Future considerations: Sleep study, follow-up brain MRI with and without contrast Headache Management Tips Combining good self-care with some helpful tools can make managing headaches much easier. Healthy Habits * Eat a balanced diet * Drink enough water throughout the day, typically at least 64-80 oz of fluid per day. * You may continue adding 1-2 servings of electrolyte replacements to your water per day * Get regular, adequate sleep consisting of 7-9 hours of sleep per night * Stay active with routine physical activity, typically at least 30 minutes 5 days per week * Stay connected with friends and family, enjoy meaningful activities, and take care of your mood Tracking Your Headaches * Write down when headaches happen, what helps, and any side effects of new treatments * There are several options to help you, such as: * Apps such as Migraine Shaggy * A simple paper calendar or paper migraine tracker Non-Medication Strategies * Light sensitivity: special glasses may help (blue-light or FL-41 filters, green lenses) or green-light therapy * Avoid wearing dark sunglasses indoors * Sound sensitivity: noise-canceling earplugs can reduce bothersome noise * Neuromodulation devices: certain medical devices can be used alone or with medications to lower headache frequency and severity These strategies may not stop every attack, but over time, they can reduce headache frequency, intensity, and impact. For acute (as needed) headache treatment: It is important to take acute medications at the first sign of headache. However, please be aware that frequently using most acute medications may increase the frequency of your headache attacks, as well as make your other treatments less effective. * Discontinue Ubrelvy 50 mg as needed order * Start Ubrogepant (Ubrelvy) 100mg tab: * Take Ubrogepant 1/2 - 1 tab (50-100mg) at onset of moderate to severe migraine without nausea. * You may repeat the dose in 2 hours. Max of 2 tabs (200mg) per 24 hours. * You may take Ubrogepant with OTC Tylenol 650mg q 4 hours, Ibuprofen (liquid gel) 600mg q 6 hours, or Naproxen (liquid gel) 440mg q 12 hrs as needed. * Do not take Ubrogepant with or within 5 days of taking Butalbital (Fioricet or Fiorinal). * Possible adverse effects of Ubrogepant include, but are not limited to, fatigue, nausea, dry mouth, constipation. * Start Zavegepant 10mg nasal spray, 1 nasal spray slowly at the onset of migraine attack with severe nausea. * Possible side effects include, but are not limited to: Taste changes, nasal discomfort, nausea, vomiting, elevated BP, exacerbation of Raynaud's syndrome, hypersensitivity reaction. * Instructions for Use ? Zavegepant 10 mg Nasal [place] * Keep the nasal spray in the sealed blister package at room temperature until you are ready to use it. * Gently blow your nose. * Prepare the Device * Hold the spray upright. * With your free hand, gently press one nostril closed. * Breathing normally through your mouth, insert the nozzle into your open nostril as far as comfortable. * Then, close your mouth and slowly breathe through your nose as you press the plunger up firmly with your thumb to deliver the dose. * After delivering the dose, remove the device from your nose, release the other nostril, while breathing gently and keeping your head upright (do not tilt back or lie down) for about 10-20 seconds. * If you feel liquid in your nose, sniff gently to avoid losing the dose. * If you experience an unpleasant taste after inhaling the dose, you may take a small piece of hard candy, mint, or gum. Previous acute migraine medication trials: sumatriptan- ineffective, fioricet- ineffective Acute migraine medication contraindications: all triptans and DHE d/t symptomatic cardiomyopathy For headache prevention medication: Preventative medications should be taken routinely as prescribed for best effect, it may take several weeks for full effect to take effect. * Riboflavin 400mg daily in the morning * Magnesium 400mg daily at bedtime * Stop topiramate 100 mg twice a day order * Start topiramate 125 mg twice a day (100 mg tab + 25 mg tab to total 125 mg per dose) * Potential adverse effects of Topiramate, include but are not limited to fa tigue, cognitive changes, paresthesias (tingling), vision changes, kidney stones. Previous migraine prevention medication trials: Gabapentin, which was ineffective. Migraine prevention medication contraindications: all beta-blockers due to asthma dx We will follow-up upon review of above and with a follow-up clinic visit in 3-6 months or sooner as needed. Orders: Orders Homocysteine 05/02/25 E53.8 - Deficiency of other specified B group vitamins, R20.2 - Paresthesia of skin, R25.3 - Fasciculation Vitamin B12 and Folate 05/02/25 E53.8 - Deficiency of other specified B group vitamins, R20.2 - Paresthesia of skin, R25.3 - Fasciculation Methylmalonic Acid 05/02/25 E53.8 - Deficiency of other specified B group vitamins, R20.2 - Paresthesia of skin, R25.3 - Fasciculation Magnesium 05/02/25 E53.8 - Deficiency of other specified B group vitamins, R20.2 - Paresthesia of skin, R25.3 - Fasciculation Medications: New zavegepant 10 mg/actuation (Zavzpret) 1 spray intranasal DAILY PRN 6 ea 6RF severe migraine headache 30 days G43.109 - Migraine with aura, not intractable, without status migrainosus, R11.0 - Nausea topiramate Take with 100mg tab to total 125mg per dose 25 mg PO BID 60 tabs 6RF 30 days G43.109 - Migraine with aura, not intractable, without status migrainosus ubrogepant (Ubrelvy) take at onset of migraine, may repeat in 2hrs (may take w/ Ibuprofen) 50 - 100 mg (0.5 - 1 x 100 mg) PO ONCE PRN 16 tabs 3RF migraine headache 30 days Discontinued ubrogepant Take NEEDED for migraine headaches. May take a second dose after 2 hours if needed but no more than 2 tablets in 24 hours Discontinued Reason: Doctor's Order 50 mg PO ONCE 30 days PRN 30 tabs 3RF migraine headache Coding Level of Care Code New Pt Level 4 (08065) Diagnoses Migraine with aura, not intractable, without status migrainosus G43.109
[2025-05-02 15:06] VITALS: BP 120/84; PULSE 100; O2SAT 99; BMI 29.3
--- OUTSIDE RECORDS SUMMARY | 2025-05-02 16:31 | XMS_ITS | Clinical Summary ---
Author Organization [facility] Address [address] [place] [address] Care Team Providers Care Plastic Press Operator Name Role Phone ZhenAnkur quinn La Nena Primary Care Provider [phone] Faizan Harrison MD Unavailable [phone] Allergies Active Allergy Reactions Criticality Noted [...] Encounters Date Type Department Care Team Description 03/15/2025 11:00 AM EDT Scheduled Telephone Visit [facility] Department of Cardiology [address] [place] [address] Faizan Harrison MD Cardiomyopathy, unspecified type (HCC) (Primary Dx) 02/15/2025 8:00 AM EDT Office Visit [facility] Department of Cardiology [address] [place] [address] Faizan Harrison MD Cardiomyopathy, unspecified type (HCC) (Primary Dx) from Last 3 Months Family History Medical History Relation Comments Aneurysm Father's Father brain Graves' disease Mother Heart attack Mother's Brother 1 Heart attack Mother's Brother 2 Heart attack Mother's Sister 1 first [place] under 50 Cardiomyopathy Mother's Sister 2 sx [...] on file Sexual Orientation Not on file Last Filed Vital Signs Vital Sign Reading [...] 02/15/2025 7:49 AM EDT Plan of Treatment Health Maintenance Due Date Last Done Comments [...] 5 season) 2025 Influenza Vaccine (#1) 2025 0, 05/12/2018 DTaP,Tdap,and Td Vaccines (3 - Td [...] BLOOD ORDERABLES NO STAT Fi nal Result [facility] [address] [place] [address], * ECG/EKG 12-lead (02/15/2025 7:58 AM EDT) 02/15/2025 7:58 AM EDT 02/15/2025 8:59 AM EDT Narrative [facility] - 02/15/2025 8:59 AM EDT Ventricular Rate: 74 BPM Atrial Rate: 74 BPM P-R Interval: 152 ms QRS Duration: 78 ms Q-T Interval: 402 ms QTC Calculation(Bazett): 446 ms P [place]: 76 degrees R [place]: 63 degrees T [place]: 74 degrees Diagnosis: Normal sinus rhythm Normal ECG No previous ECGs available Confirmed by Mello Ch ([id number]) on 02/15/2025 8:40:49 AM Also confirmed by Mello Ch ([id number]), clinical editor Devan Durbin ([id number]) on 02/15/2025 8:59:54 AM Procedure Note Mello Ch MD - 02/15/2025 Ventricular Rate: 74 BPM Atrial Rate: 74 BPM P-R Interval: 152 ms QRS Duration: 78 ms Q-T Interval: 402 ms QTC Calculation(Bazett): 446 ms P [place]: 76 degrees R [place]: 63 degrees T [place]: 74 degrees Diagnosis: Normal sinus rhythm Normal ECG No previous ECGs available Confirmed by Mello Ch ([id number]) on 02/15/2025 8:40:49 AM Also confirmed by Mello Ch ([id number]), clinical editor Devan Durbin ([id number]) on 02/15/2025 8:59:54 AM us Faizan Harrison MD ECG ORDERABLES Final Result [facility] ([place]USE) [place] [address], from Last 3 Months Insurance [facility] Care Teams Plastic Press Operator Relationship Specialty Start Date End Date Ankur Fontaine [address] [place] [id number] PCP - General Family Medicine 02/15/25 Faizan Harrison MD [address] [place] [address] [address] Consulting Physician Cardiology 02/15/25
== END 2025-05-02 16:37 | disposition home or self-care (01) ==
LOC: HO.HSMS 14:45
PROVIDERS: PCP Internal Medicine; Visit Provider Nurse Practitioner Family
DX: G43.109 Migraine with aura, not intractable, without status migrainosus (principal)
CPT/HCPCS: 99204

== ENCOUNTER → 2025-05-02 14:45 | Outpatient (BNVA) | payer OTHER, SELFPAY | PROVIDERS: PCP Internal Medicine; Visit Provider Nurse Practitioner Family | DX: G43.109 Migraine with aura, not intractable, without status migrainosus (principal) | CPT/HCPCS: 99202 ==

== ENCOUNTER 2025-06-19 13:47 | Outpatient (AMB) | payer OTHER, SELFPAY ==
--- NOTE | 2025-06-19 13:55 | MHC.PC.OV ---
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 Required: No Accompanied by: Self / Same As Patient Allergies Penicillins Allergy (Mild, Verified 06/19/25 14:41) HIVES vancomycin (Vancomycin) Allergy (Mild, Verified 06/19/25 14:41) ITCHING, severe itching penicillin G procaine Allergy (Unknown, Verified 06/19/25 14:41) itching, redness Shellfish Allergy (Mild, Uncoded 06/19/25 14:41) Anaphylaxis shellfish Allergy (Unknown, Uncoded 06/19/25 14:41) Anaphylaxis Medication List - Last Reconciled 06/19/25 by Ankur Fontaine MD albuterol sulfate 90 mcg/actuation (Ventolin HFA) 2 puffs inhalation Q6H PRN 30 days cholecalciferol (vitamin D3) 25 mcg PO DAILY epinephrine 0.3 mg (0.3 mL) IM ONCE PRN gabapentin 100 mg PO BEDTIME PRN L.acid,gas,bree,rham-B.ani-cran 5 billion cell- 250 mg (up4 Probiotics Women's) 1 cap PO DAILY multivitamin with minerals (Hair,Skin and Nails tablet) 1 tab PO DAILY pantoprazole 40 mg PO DAILY 90 days topiramate 100 mg PO BID 90 days topiramate 25 mg PO BID 30 days ubrogepant (Ubrelvy) 50 - 100 mg (0.5 - 1 x 100 mg) PO ONCE PRN 30 days zavegepant 10 mg/actuation (Zavzpret) 1 spray intranasal DAILY PRN 30 days Tobacco use date assessed: 06/19/25 Dental Screening Dental Screen Date: 06/19/25 Did you have a dental visit in the last 12 months?: Yes Did you have a dental problem in the last 6 months where you did not have access to dental care?: No Was dental information given to patient?: Patient has dentist HPI 4 months HPI Details - The patient is a 44-year-old female presenting for follow-up of cardiomyopathy and irregular heart rhythm. - The patient has a diagnosis of cardiomyopathy, which is thought to be related to premature ventricular contractions (PVCs). - Her ejection fraction is 47%, and a coronary CTA was negative for blockages. - Genetic testing for cardiomyopathy was negative. - She has a family history of cardiomyopathy in an aunt, and her 17-year-old daughter is currently being evaluated by a chair car driver for a newly discovered irregular heart rhythm after a syncopal episode. - The patient reports symptoms of a racing heart and feeling the need to catch her breath. - She previously took a beta-matthew for a cardiac MRI and reported feeling significantly better on it. - Her chair car driver, Dr. Patrick, is monitoring her, with the next appointment scheduled for February. - The patient takes Topamax 125 mg twice daily for migraines, prescribed by her neurologist and PCP. - She was also prescribed riboflavin and magnesium by her neurologist, but stopped the riboflavin due to gastrointestinal upset. - She has a known allergy to shellfish and carries an EpiPen, which she has not had to use in 15 years. - She reports recent weight gain despite working out. - She takes Pantoprazole for heartburn that is effective. [facility] Medical History Low vitamin B12 level GERD without esophagitis Mixed hyperlipidemia Fibromyalgia Obesity (BMI 30-39.9) Chiari I malformation Migraine Palpitations Surgical History Hx of bilateral breast reduction surgery Hx of tubal ligation History of endometrial ablation Family History Mother Graves disease Maternal Aunt Cardiomyopathy Other Congestive heart failure Diabetes Hypertension Stomach cancer Social History Housing: House Alcohol intake: current Alcohol intake frequency: holidays/special occasions only Patient Tobacco Use Status: Never used Tobacco e-Cigarette/Vaping Use: Never Used service: No Current occupational status: employed 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 1. Little interest or pleasure in doing things: not at all 2. Feeling down, depressed, or hopeless: not at all 3. Trouble falling or staying asleep, or sleeping too much: not at all 4. Feeling tired or having little energy: several days 5. Poor appetite or overeating: not at all 6. Feeling bad about yourself - or that you are a failure or have let yourself or your family down: not at all 7. Trouble concentrating on things, such as reading the newspaper or watching television: not at all 8. Moving or speaking so slowly that other people could have noticed. Or the opposite - being so fidgety or restless that you have been moving around a lot more than usual: not at all 9. Thoughts that you would be better off or of hurting yourself in some way: not at all Total score: 1 Depression Screening Interpretation: Negative Depression Screening Done: Yes [address]4701 - PHQ-9 Billing: Yes Source: Developed by Drs. Maico Angeles, Lesia Montero, Guanako Nova and colleagues, with an educational chelle from [employer]. Thrive Questionnaire Date Thrive assessed: 06/19/25 I am a: Patient What is your living situation today?: I have a steady place to live Within the past 12 months, did the food you bought not last and you didn't have the money to get more?: Never true Within the past 12 months, did you worry whether your food would run out before you got money to buy more?: Never true Do you have trouble paying for medicines?: No Do you have trouble getting transportation to medical appointments?: No Do you have trouble paying your heating and electricity bill?: No Do you have trouble taking care of your child, family member or friend?: No Do you have trouble with day-to-day activities such as bathing, preparing meals, shopping, managing finances, etc.?: No Are you currently unemployed and looking for a job?: No Are you interested in more education?: No Currently or been in a relationship where the following occur: No concerns reported THRIVE Score: 0 AUDIT C Alcohol Use Questionnaire (AUDIT-C) 1. How often do you have a drink containing alcohol?: 2-4 times a month 2. How many drinks containing alcohol do you have on a typical day when you are drinking?: 1 or 2 3. How often do you have six or more drinks on one occasion?: Never Total Score: 2 Score Reviewed/Action Taken: Yes MAYRA-7 AMB Questionnaire MAYRA-7 Date MAYRA - 7 assessed: 06/19/25 Feeling nervous, anxious, or on edge: 0 = Not at all Not being able to stop or control worryin = Not at all Worrying too much about different things: 0 = Not at all Trouble relaxin = Not at all Being so restless that it is hard to sit still: 0 = Not at all Becoming easily annoyed or irritable: 0 = Not at all Feeling afraid as if something awful might happen: 0 = Not at all Total MAYRA-7 score (0-4 normal; 5-9 mild; 10-14 moderate; 15-21 severe): 0 Source: Developed by Drs. Maico Angeles, Lesia Montero, Guanako Nova and colleagues, with an educational chelle from [employer]. Review of Systems Const Denies chills, Reports fatigue, Denies fever(s) and Denies headache(s) (better controlled lately) ENT Reports dysphagia (occasionally ), Denies dizziness, Denies otalgia, Denies headache(s) (better controlled lately), Denies neck pain, Denies odynophagia and Denies sore throat Card Denies chest pain, Denies irregular heart rhythm (but reports experiencing palpitations/tachycardia at times), Reports palpitations (occasionally) and Denies dyspnea Resp Denies chest congestion, Denies cough and Denies dyspnea GI Denies abdominal pain, Denies constipation, Reports dysphagia (occasionally ), Denies heartburn (better controlled on Pantoprazole), Denies diarrhea, Denies nausea, Denies odynophagia and Denies vomiting Denies difficulty voiding, Denies nocturia, Denies dysuria and Denies urinary urgency Musc Denies back pain, Reports myalgias (diffuse), Reports arthralgias (involving multiple joints, including her wrists and elbows) and Denies neck pain Skin/Breast Denies rash Neuro Reports burning sensations (in both feet, recurrent, often at night), Denies dizziness and Denies headache(s) (better controlled lately) Endo Reports fatigue and Reports palpitations (occasionally) Physical exam (Primary Care) Vital Signs: Last Vital Signs Pulse 88 06/19/25 13:56 BP 130/82 06/19/25 13:56 Pulse Ox 98 06/19/25 13:56 Oxygen Delivery Method Room Air 06/19/25 13:56 BMI result Body Mass Index 32.1 Tobacco/Smoking Status: Tobacco use Status Tobacco use date assessed 06/19/25 06/19/25 14:01 Patient Tobacco Use Status Never used Tobacco 06/19/25 14:01 Tobacco use type 09/26/24 11:25 e-Cigarette/Vaping Use Never Used 06/19/25 14:01 PHQ-9: PHQ-9 Score PHQ-9: Total score 1 06/19/25 14:50 Depression Screening Interpretation: Negative Thrive Assessment: Date of Thrive Assessment Date Thrive assessed 06/19/25 06/19/25 14:01 Currently or been in a relationship where the following occur: No concerns reported Const General: no acute distress and alert HENMT Throat: Yes posterior oropharynx normal and Yes tonsils normal (no TP congestion) Neck Neck: Yes supple and No lymphadenopathy Thyroid: Thyroid normal Resp Auscultation: clear to auscultation bilaterally, no rales and no wheezes Cardio Rate: regular rate Rhythm: abnormal rhythm with ectopic beats Heart sounds: no murmurs GI Palpation (GI): Soft to palpation and nontender Auscultation: normal bowel sounds General: Yes no CVA tenderness Back/Spine/Pelvis Back: no CVA tenderness Thoracic/Lumbar Spine: No lumbar spinal tenderness Skin Rashes: no rashes Extrem General: Yes no clubbing, cyanosis or edema Coding Level of Care Code Est Pt Level 4 (44720) Diagnoses Palpitations R00.2 Mixed hyperlipidemia E78.2 Fibromyalgia M79.7 Chronic nonintractable headache, unspecified headache type R51.9; G89.29 Headache type: unspecified Intractability: not intractable Chiari I malformation G93.5 Neuropathy G62.9 Obesity (BMI 30-39.9) E66.9 Additional Codes PHQ-9 - 99087 - PHQ-9 Billing: Yes ([id number]) Assessment & Plan Assessment & Plan (1) Palpitations: Code(s): R00.2 - Palpitations Category: Medical Plan: 12 lead EKG done at [facility] in July 2023 revealed NSR with non-specific T-wave abnormality As patient continues to experience her recurrent symptoms of palpitations/skipped beats over the past several months, she was referred to cardiology for further evaluation and management Echocardiogram revealed global hypokinesia with mildly decreased left ventricular systolic function - EF is at 47%. No obvious valvular pathology is seen and diastolic function is normal for her age Holter monitor revealed baseline rhythm is sinus, with average heart of 84 beats per minute. Rare PACs and PVCs noted without significant pauses. No patient reported events Patient states that all of her recent tests, including a coronary CTA and cardiac MRI, came back normal Follow up with cardiology as scheduled Per request, will try starting patient on low dose beta matthew tp see if this will help control/reduce her bouts of palpitations better Start Metoprolol ER 25 mg QD (2) Mixed hyperlipidemia: Code(s): E78.2 - Mixed hyperlipidemia Category: Medical Plan: Her cholesterol levels back in October 2024 are mostly similar to what her numbers were last year - her total cholesterol 253, TG 231, HDL 45 and LDL 162 mg/dl Reinforced low cholesterol diet Patient is advised that if she can not get her numbers improved significantly, we may need to consider starting her on cholesterol-lowering medications - she recalls being on simvastatin in the past but is unclear at this time why she stopped taking it Will have patient recheck her labs and fasting lipids in 4 months for follow-up (3) Fibromyalgia: Code(s): M79.7 - Fibromyalgia Category: Medical Plan: She was seen by rheumatology a few months ago and was advised that most of her arthralgia and myalgias are due to fibromyalgia She was reassured that she does not appear to have any findings consistent with any inflammatory joint disease She is encouraged to continue to try to stay active and exercise regularly to help manage her fibromyalgia symptoms (4) Chronic headaches: Code(s): R51.9 - Headache, unspecified; G89.29 - Other chronic pain Category: Medical Qualifiers: Headache type: unspecified Intractability: not intractable Qualified Code(s): R51.9 - Headache, unspecified; G89.29 - Other chronic pain Plan: These are likely related to her Chiari I malformation but patient also has (+) Hx of migraine headaches Continue Topiramate XR 100 mg BID for headache prophylaxis, which patient feels is helping Will try starting her on Ubrelvy 50 mg PRN for symptomatic relief of breakthrough headaches since she finds that sumatriptan does not really help much She was seeing Dr. Denise Lancaster at [facility] for follow up of her headaches but was informed that Dr. Lancaster is leaving the practice for [place] and she will be seeing another neurologist in the same practice at her next appointment She would like to see if she can be switched over to neurology here at [facility] instead so she can get all of her medical care consolidated in one place - referral to [facility] Neurology done (5) Chiari I malformation: Code(s): G93.5 - Compression of brain Category: Medical Plan: Follow up with neurology as scheduled (6) Neuropathy: Code(s): G62.9 - Polyneuropathy, unspecified Category: Medical Plan: Involving both feet/lower extremities Patient was sent for EMG and NCV of both lower extremities for further evaluation - she had these done back in May 2024 and both tests came back normal. There were no electrodiagnostic evidence for peroneal neuropathy, tibial neuropathy, lumbosacral plexopathy, lumbar radiculopathy, or peripheral neuropathy Continue Gabapentin 100 mg Q HS (7) Obesity (BMI 30-39.9): Code(s): E66.9 - Obesity, unspecified Category: Medical Plan: Reinforced diet/exercise as tolerated/lose weight Plan Follow up in 4 months Medications: New metoprolol succinate ER 25 mg PO DAILY 90 tabs 3RF 90 days
[2025-06-19 13:56] VITALS: BP 130/82; PULSE 88; O2SAT 98; BMI 32.1
--- OUTSIDE RECORDS SUMMARY | 2025-06-19 16:05 | XMS_ITS | Clinical Summary ---
Author Organization [facility] Address [address] [place] [address] Care Team Providers Care Natural Resources Professor Name Role Phone Ankur Fontaine Primary Care Provider [phone] Faizan Harrison MD Unavailable [phone] Allergies Active Allergy Reactions Criticality Noted [...] 5 Active Topamax 100 mg tablet Active Family History Medical History Relation Comments Aneurysm Father's Father brain Graves' disease Mother Heart attack Mother's Brother 1 Heart attack Mother's Brother 2 Heart attack Mother's Sister 1 first [place] under 50 Cardiomyopathy Mother's Sister 2 sx [...] - 19+ 3-dose series) 09/26/1999 Pneumococcal Vaccine: At-Ris k and Pediatric Patients (0 to 49 Years) (1 of 2 - PCV) 09/26/1999 Pap Smear 2001 HPV Vaccines (1 - 3-dose SCD M series) 09/26/2007 Cervical Cancer Screening 2010 HPV/Cotest 2010 COVID-19 Vaccine (1 - 2024-2 6 season) 2025 Influenza Vaccine (#1) 2025 0, [...] on patient's age to complete this topic Insurance [facility] Care Teams Natural Resources Professor Relationship Specialty Start Date End Date Ankur Fontaine [address] [place] [id number] PCP - General Family Medicine 02/15/25 Faizan Harrison MD [address] [place] [address] [address] Consulting Physician Cardiology 02/15/25
== END 2025-06-19 14:55 | disposition home or self-care (01) ==
LOC: HO.HMCH 13:48
PROVIDERS: PCP Internal Medicine; Visit Provider Internal Medicine
DX: G93.5 Compression of brain (principal); R00.2 Palpitations; E78.2 Mixed hyperlipidemia; M79.7 Fibromyalgia; R51.9 Headache, unspecified; G89.29 Other chronic pain; G62.9 Polyneuropathy, unspecified; E66.9 Obesity, unspecified

== ENCOUNTER → 2025-06-19 13:47 | Outpatient (BNVA) | payer OTHER, SELFPAY | PROVIDERS: PCP Internal Medicine; Visit Provider Internal Medicine | DX: R00.2 Palpitations (principal); E78.2 Mixed hyperlipidemia; M79.7 Fibromyalgia; R51.9 Headache, unspecified; G89.29 Other chronic pain; G93.5 Compression of brain; G62.9 Polyneuropathy, unspecified; E66.9 Obesity, unspecified; Z13.31 Encounter for screening for depression | CPT/HCPCS: 96127; 99212 ==